=== PATIENT | male | born 2000 | race Caucasian/White ===

== ENCOUNTER 2021-05-02 17:49 | Inpatient (IN) | payer BC ==
--- NOTE | 2021-05-02 18:39 | ED ---
General Adult HPI - General Chief complaint: Psychiatric Symptoms Stated complaint: Bee Farmer Order Time Seen by Provider: 05/02/21 18:17 Source: patient Mode of arrival: ambulatory Limitations: no limitations - History of Present Illness Initial comments: Dictation was produced using [employer] dictation software. please excuse any grammatical, word or spelling errors. Chief Complaint: 20year-old male brought to the emergency department for [employer] mushroom picker order History of Present Illness: She is a 20-year-old male has no past medical history. He was brought in by police department for mushroom picker order. There is pick for documentation stating that patient has been homicidal showing signs of psychosis. Patient denies any such issues. Denies any suicidal or homicidal ideation. According to pick him for documentation patient has tried to kill himself and kill his father. He's also been showing signs of cedric. Patient denies any medical complaints. The ROS documented in this emergency department record has been reviewed and confirmed by me. Those systems with pertinent positive or negative responses have been documented in the HPI. All other systems are other negative and/or noncontributory. PHYSICAL EXAM: General Impression: Alert and oriented x3, not in acute distress HEENT: Normocephalic atraumatic, extra-ocular movements intact, pupils equal and reactive to light bilaterally, mucous membranes moist. Cardiovascular: Heart regular rate and rhythm Chest: Able to complete full sentences, no retractions, no tachypnea Abdomen: abdomen soft, non-tender, non-distended, no organomegaly Musculoskeletal: Pulses present and equal in all extremities, no peripheral edema Motor: no focal deficits noted Neurological: CN II-XII grossly intact, no focal motor or sensory deficits noted Skin: Intact with no visualized rashes Psych: Normal affect and mood ED course: 1-year-old male presents to the emergency department with Police Department as a mushroom picker order vital signs upon arrival are within acceptable limits. Patient has no medical complaints. Physical examination is benign. Patient medically cleared for EPS evaluation. Patient evaluated by EPS and will be admitted to inpatient psych. Clinical certification completed. - Related Data Home Medications Medication Instructions Recorded Confirmed No Known Home Medications 05/02/21 05/02/21 Allergies Allergy/AdvReac Type Severity Reaction Status Date / Time No Known Allergies Allergy Verified 05/02/21 21:50 Review of Systems ROS Statement: Those systems with pertinent positive or pertinent negative responses have been documented in the HPI. ROS Other: All systems not noted in ROS Statement are negative. Past Medical History Past Medical History: No Reported History History of Any Multi-Drug Resistant Organisms: None Reported Past Surgical History: No Surgical Hx Reported Past Psychological History: No Psychological Hx Reported Smoking Status: Never smoker Past Alcohol Use History: Occasional Past Drug Use History: Marijuana General Exam Limitations: no limitations Course Vital Signs 05/02/21 18:02 Temperature 98.3 F Pulse Rate 86 Respiratory 18 Rate Blood Pressure 131/76 O2 Sat by Pulse 95 Oximetry Disposition Clinical Impression: Psychosis Disposition: ADMITTED IP TO THIS HOSP Condition: Fair Referrals: None,Stated [REFERRING] - 1-2 days
[2021-05-03] MEDS ORDERED: LORazepam 1 MG TAB PO PRN (00:39)
[2021-05-03] MEDS ORDERED: ACETAMINOPHEN TAB 325 MG TAB PO PRN (00:39)
[2021-05-03] MEDS ORDERED: MAGNESIUM HYDROXIDE 2,400 MG/10 ML CUP PO PRN (00:39)
[2021-05-03] MEDS ORDERED: MAG HYDROX/AL HYDROX/SIMETH 30 ML CUP PO PRN (00:39)
[2021-05-03] MEDS ORDERED: LORazepam 2 MG/ML INJ IM PRN (00:43)
[2021-05-03] MEDS ORDERED: HALOPERIDOL LACTATE 5 MG/ML 1 ML VIAL IM PRN (00:44)
[2021-05-03] MEDS: NICOTINE 14MG/24HR PATCH TRANSDERM SCH ×2 (01:33→11:06)
[2021-05-03 02:20] LABS: Appearance,Urine Clear (Clear); Bilirubin,Urine Negative (Negative); Blood,Urine Negative (Negative); Color,Urine Colorless; Glucose,Urine (UA) Negative (Negative); Ketones,Urine Negative (Negative); Leukocyte Esterase,Urine Negative (Negative); Nitrite,Urine Negative (Negative); Protein,Urine Negative (Negative); Specific Gravity,Urine 1.004 (1.001-1.035); Urobilinogen,Urine <2.0 mg/dL (<2.0)
--- NOTE | 2021-05-03 05:06 | P.MDCNMH ---
History of Present Illness H&P Date: 05/03/21 Chief Complaint: medical eval 20 year old no significant past medical history patient is here for evaluation due to homicidal ideation , he was brought in by police. patient denies any medical concerns or homicidal or suicidal ideation. he admits to having family history of mental health issues. from ED documentation , looks like police brought him in due to homicidal ideation against his father, and suicidal ideation. he was manic and acutely psychotic per ED report. currently he is calm and cooperative. Patient denies cigarette smoking, drug abuse, or alcohol abuse Review of Systems Pertinent positives as noted in HPI. All other systems were reviewed and are negative Past Medical History Past Medical History: No Reported History History of Any Multi-Drug Resistant Organisms: None Reported Past Surgical History: No Surgical Hx Reported Past Psychological History: No Psychological Hx Reported Smoking Status: Current every day smoker Past Alcohol Use History: Occasional Past Drug Use History: Marijuana - Past Family History family Additional Family Medical History / Comment(s): mental health issues Medications and Allergies Home Medications Medication Instructions Recorded Confirmed Type No Known Home Medications 05/02/21 05/03/21 History Allergies Allergy/AdvReac Type Severity Reaction Status Date / Time No Known Allergies Allergy Verified 05/03/21 03:27 Physical Exam Vitals: Vital Signs Temp Pulse Pulse Resp BP BP Pulse Ox 05/03/21 01:06 98.6 F 79 16 110/69 99 05/03/21 00:00 84 20 124/84 95 05/02/21 18:02 98.3 F 86 18 131/76 95 Intake and Output 05/02/21 05/02/21 05/03/21 14:59 22:59 06:59 Other: Weight 63.503 kg 64.552 kg Constitutional: No acute distress, conversant, pleasant Eyes: Anicteric sclerae, moist conjunctiva, Pupils equal round reactive to light ENMT: NC/AT Oropharynx clear, no erythema, or exudates Neck: Supple, FROM, no masses, or JVD No carotid bruits No thyromegaly Lungs: Clear to auscultation Clear to percussion Normal respiratory effort, no accessory muscle use Cardiovascular: Heart regular in rate and rhythm, No murmurs, gallops, or rubs No peripheral edema Abdominal: Soft Nontender, no guarding, rebound or rigidity Abdomen moving with respiration Normoactive bowel sounds No hepatomegaly, No splenomegaly No palpable mass No abdominal wall hernia noted Skin: Normal temperature, tone, texture, turgor No induration No subcutaneous nodules No rash, lesions No ulcers Extremities: No digital cyanosis No clubbing Pedal pulses intact and symmetrical Radial pulses intact and symmetrical No calf tenderness Psychiatric: Alert and oriented to person, place and time Neuro Muscles Strength 5/5 in all 4 extremities Sensation to light touch grossly present throughout Cranial nerves II-XII grossly intact No focal sensory deficits Lymphatics: no palpable cervical or supraclavicular , or inguinal lymph nodes Cranial Nerve Examination - Cranial Nerves Cranial Nerve II- Optic: Intact Cranial Nerve III- Oculomotor: Intact Cranial Nerve IV- Trochlear: Intact Cranial Nerve V- Trigeminal: Intact Cranial Nerve - Abducens: Intact Cranial Nerve VII- Facial: Intact Cranial Nerve VIII- Auditory: Intact Cranial Nerve IX- Glossopharyngeal: Intact Cranial Nerve X- Vagus: Intact Cranial Nerve XI- Accessory: Intact Cranial Nerve XII- Hypoglossal: Intact Assessment and Plan Assessment: acute psychosis with suicidal and homicidal ideation suicide precautions management per psych follow up labs Thank you for allowing us to participate in the care of this patient. We will follow peripherally. Do not hesitate to contact us with questions. Someone can be reached from the [facility] hospitalist group at all hours of the day at [phone].
[2021-05-03] MEDS: ARIPiprazole 5 MG TAB PO SCH (11:55)
--- NOTE | 2021-05-03 12:00 | P.HP ---
Psychiatric H&P - . H&P Date: 05/03/21 History & Physical: Allergies Allergy/AdvReac Type Severity Reaction Status Date / Time No Known Allergies Allergy Verified 05/03/21 03:27 Vital Signs Temp 98.6 F 05/03/21 01:06 Pulse 79 05/03/21 01:06 Resp 16 05/03/21 01:06 BP 110/69 05/03/21 01:06 Pulse Ox 99 05/03/21 01:06 Intake & Output 05/02/21 05/03/21 05/03/21 18:59 06:59 18:59 Weight 63.503 kg 64.552 kg Laboratory Last Values Urine Color Colorless 05/03/21 01:14 Urine Appearance Clear (Clear) 05/03/21 01:14 Urine pH 7.0 (5.0-8.0) 05/03/21 01:14 Ur Specific [place] 1.004 (1.001-1.035) 05/03/21 01:14 Urine Protein Negative (Negative) 05/03/21 01:14 Urine Glucose (UA) Negative (Negative) 05/03/21 01:14 Urine Ketones Negative (Negative) 05/03/21 01:14 Urine Blood Negative (Negative) 05/03/21 01:14 Urine Nitrite Negative (Negative) 05/03/21 01:14 Urine Bilirubin Negative (Negative) 05/03/21 01:14 Urine Urobilinogen <2.0 mg/dL (<2.0) 05/03/21 01:14 Ur Leukocyte Esterase Negative (Negative) 05/03/21 01:14 Coronavirus (PCR) Not Detected (Not Detectd) 05/02/21 21:45 05/03/21 11:54 IDENTIFYING DATA: Patient is a 20-year-old male who currently lives with his grandmother's single has no kids. HPI: Patient presented to the hospital yesterday on a pickup order by police. Apparently patient was exhibiting manic symptoms in the ER. Patient was on petition by his parents who are stating that patient has been making homicidal threats towards them. Patient was seen today pacing the hallways and was very adamant to speak to job specification writer. He initially told job specification writer that "if you don't discharge me today I'm calling a transmission superintendent". He made several threats towards writ er about legal action and also denied everything on the petition. He claims that "these people are trying to mess up my life" and pointed to the petition and the certificate from the ER doctor. He claims that the ER doctor does not have the right to assess him as psychotic. 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 He had racing thoughts and flight of ideas. He had poor impulse control and poor insight and judgment. He claims that he will not take any medications and was persistent on discharge. He claims that his mood is "great". He is denying any depression or anxiety. He states that he has not slept in the past few days. He claims that he wants to "block of my family and friends" because he feels that they are judging him and that they will try and force him to get treatment. Patient denies any suicidal or homicidal ideations intent or plan. At this time patient denies any auditory or visual hallucinations. Patient is currently using marijuana however did not specify how much. He denies using any other recreational drugs. PAST PSYCHIATRIC HISTORY: Patient states that he has no previous psychiatric history. Patient denies being on any psychiatric medications. Patient denies any previous psychiatric hospitalizations. Patient denies any psychiatric outpatient follow-up. Patient denies any history of suicide attempts in the past. PMH:denies ALLERGIES: as per EMR CHEMICAL DEPENDENCY HISTORY: as per HPI FAMILY PSYCHIATRIC/SUBSTANCE USE HISTORY: He states that his brother and father both have schizophrenia. SOCIAL HISTORY: Patient was born and raised in [facility]. He states that he completed high school. He states that he has never been to halfway or shelter. He denies having any kids and states that he is unmarried. He claims he lives with his grandmother. MENTAL STATUS EXAM: General Appearance: Patient appears to be thin, stated age is alert, intrusive. Patient appears to have poor hygiene and grooming. Behavior: Patient is seated without any agitated behavior. Intrusive and impulsive. Speech: Patient's speech is hyperverbal. Mood/Affect: Patient reports their mood is "great", affect is congruent Suicidality/Homicidality: Patient denies having any homicidal ideation intent or plan. Denies any suicidal ideations intent or plan Perceptions: Patient denies any visual hallucinations and denies any auditory hallucinations Though content/process: Rambles, tangential/circumstantial. Delusional. Grandiose. Memory and concentration: AOX3, grossly intact for the purposes of this session. Can spell "WORLD" backwards Judgment and insight: poor STRENGTHS/WEAKNESSES: strength is that patient is resilient. Weakness is that patient has poor judgment and is impulsive INTELLECT: average IMPRESSIONS: Bipolar disorder, current episode manic with psychotic features Cannabis use disorder PLAN: -Patient is admitted under involuntary status to [facility] for stabilization of psychiatric symptoms and safety. Patient has not signed adult voluntary form and medication consent and is placed in patient's chart. A second certification was completed and along with petition will be filed for court. -Medications : Will start patient on Abilify 5 mg daily for mood stabilization/psychosis. Trazodone 50 mg daily at bedtime for insomnia. -Ativan and Haldol PRN for agitation/aggression -Patient was informed of the risks, benefits and side effects of the medication -Internal Medicine consult to perform medical evaluation and physical. -NRT - not needed as patient does not smoke -SW on board for discharge planning. Encourage patient to participate in groups to work on coping skills. Will await deferral and court date.
[2021-05-03] MEDS: traZODone HCL 50 MG TAB PO SCH (21:02)
[2021-05-04 07:51] LABS: Urine Alcohol Negative (Negative); Urine Barbiturate Negative (Negative); Urine Cocaine Negative (Negative); Urine Methadone Negative (Negative); Urine Opiates Negative (Negative); Urine Phencyclidine Negative (Negative)
[2021-05-04] MEDS: NICOTINE 14MG/24HR PATCH TRANSDERM SCH (08:07)
[2021-05-04] MEDS: ARIPiprazole 5 MG TAB PO SCH (08:07)
--- NOTE | 2021-05-04 10:29 | P.PN ---
Progress Note - Text Progress Note Date: 05/04/21 Interval History: Patient was seen wandering the hallways and was directable and agreeable to sp eak with job specification writer in the office. Patient continues to be hyperverbal and have a flight of ideas and racing thoughts. He continues to demand discharge and have poor insight and judgment into his mental health and also his need for treatment. He remains fixated on obtaining a iuss master analyst and also "going after my family legally" as he was pointing to the petition repeatedly during the interview. He apologized somewhat for being angry with job specification writer yesterday and states "you're just doing her job". He continues to state that he is refusing medications. He states that his mood is "okay" and is denying any depression and states that "I would never hurt a fly". He claimed that he had poor sleep last night and remained awake until 2 AM. He states that he spoke with his ex- girlfriend over the phone because "she is the only one I trust" and believes that other people are trying to get in the way of his plans. At this time patient denies any suicidal or homical ideations, intent or plan. Patient denies any auditory, visual hallucinations. Mental Status Exam: General Appearance: Patient appears to be thin, stated age is alert, intrusive. Patient appears to have mildly hygiene and grooming. Behavior: Patient is seated without any agitated behavior. Intrusive and impulsive. Speech: Patient's speech is hyperverbal. Mood/Affect: Patient reports their mood is "ok", affect is congruent Suicidality/Homicidality: Patient denies having any homicidal ideation intent or plan. Denies any suicidal ideations intent or plan Perceptions: Patient denies any visual hallucinations and denies any auditory hallucinations Though content/process: Rambles, tangential/circumstantial. Delusional. Grandiose. Memory and concentration: AOX3, grossly intact for the purposes of this session Judgment and insight: poor Assessment Bipolar disorder, current episode manic with psychotic features Cannabis use disorder Plan: -Patient continues to meet criteria for inpatient psychiatric admission for symptom stabilization and safety. Patient has not signed adult voluntary form and medication consent and was placed in patient's chart. -Medications: Continue with Abilify 5 mg daily for mood stabilization/psychosis. Trazodone 50 mg daily at bedtime for insomnia. Patient has been refusing his medications. -When necessary Ativan and Haldol for agitation/aggression. -NRT - not needed as patient does not smoke -SW on board for discharge planning. Encouraged the patient to participate in milieu. Currently awaiting deferral with admitted attorneys and court date.
[2021-05-04] MEDS: traZODone HCL 50 MG TAB PO SCH (21:12)
[2021-05-05] MEDS: ARIPiprazole 5 MG TAB PO SCH (08:09)
[2021-05-05] MEDS: NICOTINE 14MG/24HR PATCH TRANSDERM SCH (08:09)
[2021-05-05] MEDS: traZODone HCL 50 MG TAB PO SCH (20:22)
--- NOTE | 2021-05-06 01:32 | P.PN ---
Progress Note - Text Progress Note Date: 05/05/21 Subjective: Patient was seen today as a cross coverage for Eula. The patient was evaluated, chart reviewed, case discussed with the treatment team. Patient reports good sleep last night, and appetite was reported as "great". Patient has not been going to groups and other unit activities. The patient is not compliant with his medications and continued to refuse taking any meds or receiving any treatment during his hospital stay. Patient reports refusing any treatment including medications and other program activities. He states that he was given wrong diagnosis and he doesn't agree with his mother who brought him to the hospital. He reports probably presented first day with increased speech and irritated because of the situation that he was brought to the hospital so Dr. Forde "mistakenly" diagnosed him with bipolar. Pt. denies any history of depressive or manic episodes. He reports his mood is "great" and denies depression, anxiety, mood swings, anger or agitation. Denies any hallucinations, paranoid ideation or delusions. Objective: Vitals has been reviewed. Mental status examination. Appearance: The patient appears older than, groomed, average body built, no specific features. Gait/posture: Normal gait, Normal arm swinging: No abnormal movements. Attitude and behavior: engaged, cooperative, fair eye contact. Motor activity: normal psychomotor activity Speech: normal rate, rhythm and articulation. Not pressured Mood: "fine Affect: Normal Thought form: Linear, goal directed Thought content: non delusional, no suicidal thoughts, no homicidal thoughts, no intentions or plans. Perception: Denies any hallucinations Attention: No impairment. Orientation: Oriented to time, place, person and situation. Insight: Patient has limited insight about his psychiatric disorder. Judgment: Patient has limited judgment about his psychiatric treatment. Assessment: Bipolar disorder, current episode manic with psychotic features Cannabis use disorder Plan: Continue inpatient level of care for further monitoring and stabilization, and he still meets criteria for inpatient psychiatric hospitalization. Precautions: Continue 15 minutes check for safety. Consider medical consultation if any acute medical issues arise. Provide the patient individual, group therapy, substance use disorder counseling to give better insight and learn coping skills. Medications: Patient continued to refuse taking any psych medications Abilify 5 mg for mood stabilization and Trazodone 50 mg HS for insomnia. NRT. Continue as needed medications for psychiatric emergencies including psychosis, agitation and anxiety. Continue non-psychiatric medications for medical conditions as recommended by the medical team. Pt is scheduled for court hearing as he refused any psych treatment. Discharge patient to OUTPATIENT services upon a stabilization
[2021-05-06] MEDS: NICOTINE 14MG/24HR PATCH TRANSDERM SCH (07:59)
[2021-05-06] MEDS: ARIPiprazole 5 MG TAB PO SCH (07:59)
[2021-05-06] MEDS: traZODone HCL 50 MG TAB PO SCH (20:13)
--- NOTE | 2021-05-06 23:53 | P.PN ---
Progress Note - Text Progress Note Date: 05/06/21 Subjective: Patient was seen today as a cross coverage for Eula. The patient was evaluated, chart reviewed, case discussed with the treatment team. Patient continued to be argumentative about his diagnosis, and reports his mother petition was just "lies". Patient addressed that he was stressed at the time he came to the hospital but denies any intention to hurt himself, and other time stated" I don't remember". Patient continues to refuse taking any psychiatric medications or receiving any treatment. He reports well go to the court and asking about his equipment maintenance engineer. Patient denies any symptoms of depression, feeling hopeless, or suicidal. He denies any mood swings, irritability, agitation, or manic symptoms. No report of behavioral problems, manic symptoms, or psychosis. Patient reports fair sleep and appetite Objective: Vitals has been reviewed. Mental status examination. Appearance: The patient appears older than, groomed, average body built, no specific features. Gait/posture: Normal gait, Normal arm swinging: No abnormal movements. Attitude and behavior: engaged, cooperative, fair eye contact. Motor activity: normal psychomotor activity Speech: normal rate, rhythm and articulation. Not pressured Mood: "fine Affect: Normal Thought form: Linear, goal directed Thought content: non delusional, no suicidal thoughts, no homicidal thoughts, no intentions or plans. Perception: Denies any hallucinations Attention: No impairment. Orientation: Oriented to time, place, person and situation. Insight: Patient has limited insight about his psychiatric disorder. Judgment: Patient has limited judgment about his psychiatric treatment. Assessment: Bipolar disorder, current episode manic with psychotic features Cannabis use disorder Plan: Continue inpatient level of care for further monitoring and stabilization, and he still meets criteria for inpatient psychiatric hospitalization. Precautions: Continue 15 minutes check for safety. Consider medical consultation if any acute medical issues arise. Provide the patient individual, group therapy, substance use disorder counseling to give better insight and learn coping skills. Medications: Patient continued to refuse taking any psych medications Abilify 5 mg for mood stabilization and Trazodone 50 mg HS for insomnia. NRT. Continue as needed medications for psychiatric emergencies including psychosis, agitation and anxiety. Continue non-psychiatric medications for medical conditions as recommended by the medical team. Discharge patient to OUTPATIENT services upon a stabilization
[2021-05-07] MEDS: NICOTINE 14MG/24HR PATCH TRANSDERM SCH (09:15)
[2021-05-07] MEDS: ARIPiprazole 5 MG TAB PO SCH (09:15)
--- NOTE | 2021-05-07 10:00 | P.PN ---
Progress Note - Text Progress Note Date: 05/07/21 Interval History: Patient was seen wandering the hallways and was directable and agreeable to meera azevedo with data analyst report writer in the office. Patient continues to be hyperverbal at times and continues to have racing thoughts however this has mildly improved since he was last seen on Friday. Patient continues to refuse medications over the weekend and had a negative perception on medications however did ask several questions about it. He has not spoken with his securities attorney yet however did state that he does not know whether he is going to defer or go to the court hearing. He claims that his mood is "fine" however as an incongruent affect. He states that he has not spoken with his parents since being admitted however has spoken to his ex-girlfriend. He states that he is resilient and can do things on his own when he leaves the hospital. He was fairly vague about his sleep last night. He claims that he has been going to some groups however was also vague about the details. He continues to be very focused on discharge. At this time patient denies any suicidal or homical ideations, intent or plan. Patient denies any auditory, visual hallucinations. Mental Status Exam: General Appearance: Patient appears to be thin, stated age is alert, less intrusive today. Patient appears to have mildly hygiene and grooming. Behavior: Patient is seated without any agitated behavior. Impulsive, mildly improving. Speech: Patient's speech is hyperverbal, improving mildly. Mood/Affect: Patient reports their mood is "fine", affect is incongruent Suicidality/Homicidality: Patient denies having any homicidal ideation intent or plan. Denies any suicidal ideations intent or plan Perceptions: Patient denies any visual hallucinations and denies any auditory hallucinations Though content/process: Rambles, tangential/circumstantial. less Grandiose. Memory and concentration: AOX3, grossly intact for the purposes of this session Judgment and insight: poor Assessment Bipolar disorder, current episode manic with psychotic features Cannabis use disorder Plan: -Patient continues to meet criteria for inpatient psychiatric admission for symptom stabilization and safety. Patient has not signed adult voluntary form and medication consent and was placed in patient's chart. -Medications: Continue with Abilify 5 mg daily for mood stabilization/psychosis. Trazodone 50 mg daily at bedtime for insomnia. Patient has been refusing his medications. -When necessary Ativan and Haldol for agitation/aggression. -NRT - not needed as patient does not smoke -SW on board for discharge planning. Encouraged the patient to participate in milieu. Currently awaiting deferral with securities attorney and court date.
[2021-05-07] MEDS: traZODone HCL 50 MG TAB PO SCH (21:24)
[2021-05-08] MEDS: NICOTINE 14MG/24HR PATCH TRANSDERM SCH (08:42)
[2021-05-08] MEDS: ARIPiprazole 5 MG TAB PO SCH (08:42)
--- NOTE | 2021-05-08 10:08 | P.PN ---
Progress Note - Text Progress Note Date: 05/08/21 Interval History: Patient was seen wandering the hallways and was directable and agreeable to meera azevedo with promotion writer in the office. Patient continues to be hyperverbal at times and has racing thoughts. 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 He states that he is going to get "restraining orders against everybody". He continues to show some mild grandiosity and believes that he is "super smart". He also claims that he is very strong willed and will do anything for his beliefs and he does not want to take medications at this time. He was fairly vague about his sleep last night. He claims that he has not been going to groups and has been mainly pacing the hallway. He continues to be very focused on discharge. At this time patient denies any suicidal or homical ideations, intent or plan. Patient denies any auditory, visual hallucinations. Mental Status Exam: General Appearance: Patient appears to be thin, stated age is alert, intrusive today. Patient appears to have mildly hygiene and grooming. Behavior: Patient is seated without any agitated behavior. Impulsive, mildly improving. Speech: Patient's speech is hyperverbal, improving mildly. Mood/Affect: Patient reports their mood is "ok", affect is incongruent Suicidality/Homicidality: Patient denies having any homicidal ideation intent or plan. Denies any suicidal ideations intent or plan Perceptions: Patient denies any visual hallucinations and denies any auditory hallucinations Though content/process: Rambles, tangential/circumstantial. Grandiose. Memory and concentration: AOX3, grossly intact for the purposes of this session Judgment and insight: poor Assessment Bipolar disorder, current episode manic with psychotic features Cannabis use disorder Plan: -Patient continues to meet criteria for inpatient psychiatric admission for symptom stabilization and safety. Patient has not signed adult voluntary form and medication consent and was placed in patient's chart. -Medications: Continue with Abilify 5 mg daily for mood stabilization/psychosis. Trazodone 50 mg daily at bedtime for insomnia. Patient has been refusing his medications. -When necessary Ativan and Haldol for agitation/aggression -NRT - not needed as patient does not smoke -SW on board for discharge planning. Encouraged the patient to participate in milieu. Patient will be having his deferral today at [address] to follow.
[2021-05-08] MEDS: traZODone HCL 50 MG TAB PO SCH (23:00)
[2021-05-09] MEDS: traZODone HCL 50 MG TAB PO SCH ×2 (00:35→22:54)
[2021-05-09] MEDS: NICOTINE 14MG/24HR PATCH TRANSDERM SCH (08:20)
[2021-05-09] MEDS: ARIPiprazole 5 MG TAB PO SCH (08:20)
--- NOTE | 2021-05-09 11:06 | P.PN ---
Progress Note - Text Progress Note Date: 05/09/21 Interval History: Patient was seen wandering the hallways , pacing the hallways and was approached by greeting card writer to be interviewed. Patient was agreeable to speak to greeting card writer in the office today. He continues to be hyperverbal at times and has racing thoughts however this has improved mildly since yesterday. He claims that he spoke to the hcc coders yesterday and did not sign the deferral and wants to go to court. He continues to believe that he does not need medications and does not need to be in the hospital. He states that he spoke with his father however was fairly vague about their conversation and states that "he made a mistake". He states that he was not able to sleep well last night and took the trazodone however believes that the dose was too strong and wants to be decreased. He claims that he has not been going to groups and has been mainly pacing the hallway. He continues to be very focused on discharge. At this time patient denies any suicidal or homical ideations, intent or plan. Patient denies any auditory, visual hallucinations. Mental Status Exam: General Appearance: Patient appears to be thin, stated age is alert, intrusive today. Patient appears to have mildly hygiene and grooming. Behavior: Patient is seated without any agitated behavior. Impulsive, mildly improving. Speech: Patient's speech is hyperverbal, improving mildly. Mood/Affect: Patient reports their mood is "fine", affect is incongruent Suicidality/Homicidality: Patient denies having any homicidal ideation intent or plan. Denies any suicidal ideations intent or plan Perceptions: Patient denies any visual hallucinations and denies any auditory hallucinations Though content/process: Rambles, tangential/circumstantial. Grandiose, improving mildly Memory and concentration: AOX3, grossly intact for the purposes of this session Judgment and insight: poor Assessment Bipolar disorder, current episode manic with psychotic features Cannabis use disorder Plan: -Patient continues to meet criteria for inpatient psychiatric admission for symptom stabilization and safety. Patient has not signed adult voluntary form and medication consent and was placed in patient's chart. -Medications: Continue with Abilify 5 mg daily for mood stabilization/psychosis. Decreased Trazodone 25 mg daily at bedtime for insomnia. Patient has been refusing his medications. -When necessary Ativan and Haldol for agitation/aggression -NRT - not needed as patient does not smoke -SW on board for discharge planning. Encouraged the patient to participate in milieu. Patient did not defer with his contracts attorney and will be going to the full court hearing on 05/16 at 11 AM.
[2021-05-10] MEDS: NICOTINE 14MG/24HR PATCH TRANSDERM SCH (08:43)
[2021-05-10] MEDS: ARIPiprazole 5 MG TAB PO SCH (08:43)
--- NOTE | 2021-05-10 10:31 | P.PN ---
Progress Note - Text Progress Note Date: 05/10/21 Interval History: Patient was seen wandering and pacing the hallways back and forth and was appr oached by proposal lead writer to be interviewed. Patient was agreeable to speak with proposal lead writer in the office. He claims that he is doing "fine" however appears to be anxious at times during the interview. He continues to state that he has not wanted to take the medications. He continues to be hyperverbal at times rendering the interview. He continues to endorse some racing thoughts. He states that he has not spoken with his father in a couple of days however has been speaking with his grandmother every day in the morning. Patient took the trazodone last night and states that it is a better dose for him and doesn't leave him very sedated. He claims that he has been going to only some groups "just to appease people". He continues to be very focused on discharge and his court date. At this time patient denies any suicidal or homical ideations, intent or plan. Patient denies any auditory, visual hallucinations. Mental Status Exam: General Appearance: Patient appears to be thin, stated age is alert, intrusive today. Patient appears to have mildly hygiene and grooming. Behavior: Patient is seated without any agitated behavior. Impulsive Speech: Patient's speech is hyperverbal, improving mildly. Mood/Affect: Patient reports their mood is "fine", affect is incongruent Suicidality/Homicidality: Patient denies having any homicidal ideation intent or plan. Denies any suicidal ideations intent or plan Perceptions: Patient denies any visual hallucinations and denies any auditory hallucinations Though content/process: Rambles, tangential/circumstantial. Grandiose, improving mildly Memory and concentration: AOX3, grossly intact for the purposes of this session Judgment and insight: poor Assessment Bipolar disorder, current episode manic with psychotic features Cannabis use disorder Plan: -Patient continues to meet criteria for inpatient psychiatric admission for symptom stabilization and safety. Patient has not signed adult voluntary form and medication consent and was placed in patient's chart. -Medications: Continue with Abilify 5 mg daily for mood stabilization/psychosis. Trazodone 25 mg daily at bedtime for insomnia. -When necessary Ativan and Haldol for agitation/aggression -NRT - not needed as patient does not smoke -SW on board for discharge planning. Encouraged the patient to participate in milieu. Patient did not defer with his traffic law attorney and will be going to the full court hearing on 05/16 at 11 AM.
[2021-05-10] MEDS: traZODone HCL 50 MG TAB PO SCH (23:06)
[2021-05-11] MEDS: ARIPiprazole 5 MG TAB PO SCH (08:13)
[2021-05-11] MEDS: NICOTINE 14MG/24HR PATCH TRANSDERM SCH (08:13)
--- NOTE | 2021-05-11 15:38 | PN ---
PROGRESS NOTE DATE OF SERVICE: 05/11/2021. CHIEF COMPLAINT: The patient was admitted on petition stating he had been making threats towards his parents and that he was showing paranoid thinking. INTERVAL HISTORY: Patient has been doing fair. He was out on the unit yesterday. He interacts with staff and peers. He tends to have a somewhat intense energetic manner, though not to a significant degree. He attended groups yesterday, in one group he was making some questionable statements. He reports that his sleep has been fairly good. He states that the trazodone seems to help in that regard. He notes that is the only medicine that he is willing to take at this point. He was focused on the idea of having his court hearing on Friday for the involuntary treatment process. When I talked to him today, he had no specific complaints or concerns. He continues to reiterate that what is documented on the petition is inaccurate or can try, but he said the only thing that he agreed with on the petition was the statement his mother made of "he has stated he did not need help and anyone who thinks so....." The patient discussed his current situation. 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 He said that things are in order in that regard. He notes that he has not been living at home with his parents for a number of years and currently lives with his grandmother. He has been attending groups. At times he can present in a fairly intense manner. He has had no issues taking trazodone, which is the only psychotropic medication that he would agree to. MENTAL STATUS EXAM: Patient gave fairly good eye contact. He had a restless manner. He answered questions appropriately. His thoughts were clear and coherent. He was spontaneous and interactive. At times he seemed somewhat hyperverbal. His affect was broad and somewhat intense. He had a friendly manner. His mood was elevated. He did not appear to be distressed. There was no outward evidence of thought disorder. He voiced no thoughts of harm. Cognition was clear. ASSESSMENT: I will continue the current diagnosis and treatment plan. I will continue with the current treatment course. He is on trazodone which he takes for sleep, though does not see an indication for taking any other medications. I reviewed the court process with the patient. We will focus on stabilization and discharge planning. IRINA / MAGGIEN: [id number] /
[2021-05-11] MEDS: traZODone HCL 50 MG TAB PO SCH (23:41)
[2021-05-12] MEDS: ARIPiprazole 5 MG TAB PO SCH (08:04)
[2021-05-12] MEDS: NICOTINE 14MG/24HR PATCH TRANSDERM SCH (08:04)
--- NOTE | 2021-05-12 11:27 | PN ---
PROGRESS NOTE DATE OF SERVICE: 05/12/2021. CHIEF COMPLAINT: The patient was admitted on petition stating he had been making threats towards his parents and that he was showing paranoid thinking. INTERVAL HISTORY: Patient has been doing fairly well overall. He had a quiet day yesterday. He comes on the unit. He wanders about. He will attend groups. He generally maintains a fairly even mood if not a somewhat elevated mood. He said he slept well last night. He has been cooperative with care. Today he has been up and out. Today he voices no specific complaints or concerns. He is aware of the court situation and says that he anticipates a reasonable outcome from that. At this point his preference is to not be on any psychotropic medications beyond using trazodone for sleep. He has had no problems with the trazodone. MENTAL STATUS EXAM: Patient was a little restless. He gave good eye contact. He answered questions appropriately. His thoughts were clear. He was spontaneous and somewhat interactive. His affect was broad. His mood was somewhat elevated. He did not appear distressed. There was no outward indication of thought disorder. He voiced no thoughts of harm. Cognition was clear. ASSESSMENT: I will continue the current diagnosis and treatment plan. We will continue to support the patient with individual and group therapeutic interventions. He remains off any primary psychotropic medications. He has a court hearing on Friday relating to his petition process. We will focus on stabilization and discharge planning. IRINA / CHAVO: [id number] /
[2021-05-12] MEDS: traZODone HCL 50 MG TAB PO SCH (23:43)
[2021-05-13 07:01] VITALS: RESP 16
[2021-05-13] MEDS: ARIPiprazole 5 MG TAB PO SCH (07:49)
[2021-05-13] MEDS: NICOTINE 14MG/24HR PATCH TRANSDERM SCH (07:49)
--- NOTE | 2021-05-13 09:13 | PN ---
PROGRESS NOTE DATE OF SERVICE: 05/13/2021. CHIEF COMPLAINT: The patient was admitted on petition stating he had been making threats toward his parents and that he was showing paranoid thinking. INTERVAL HISTORY: Patient has been doing fairly well overall. He has not had significant issues with how he has been functioning on the unit. He tends to be fairly active. He will be out in the day area and wander around. He does tend to walk in a somewhat rapid pace. It is noted that yesterday he was on the phone at different times and got loud on the phone a few times with whomever he was talking to. He seemed to be a little distressed at that. Other than that situation, he did not show any difficulties in his function. He slept fair last night. He requested an increase in his trazodone saying that he did not feel he got much benefit from it last night. He is up today. He continues to wander about. He at times will seem to almost pace as he walks around the unit. He tends to have an elevated mood. He has been cooperative with care. He continues to focus on his upcoming court hearing. Though it is fairly vague about what he expects as the outcome. He does not seem to be distressed one way or another. In regards to the possibilities, he has not had any issues with trazodone. MENTAL STATUS EXAM: Patient gave good eye contact. He was a little restless. He answered questions appropriately. His thoughts were clear. His affect was broad. His mood was somewhat elevated. He was interactive. He was not distressed in any way. It was difficult to determine any issues with thought disorder. He voiced no thoughts of harm. Cognition was clear. ASSESSMENT: I will continue the current diagnosis and treatment plan. I will continue in his current issues of remaining off any psychotropics other than trazodone for sleep. I again reviewed court issues briefly and possibility that there might be a requirement for other medication interventions. We will focus on stabilization and discharge planning. MMODL / MAGGIEN: [id number] /
[2021-05-13] MEDS: traZODone HCL 50 MG TAB PO SCH (23:45)
[2021-05-14] MEDS: ARIPiprazole 5 MG TAB PO SCH (08:16)
[2021-05-14] MEDS: NICOTINE 14MG/24HR PATCH TRANSDERM SCH (08:17)
--- NOTE | 2021-05-14 10:41 | P.PN ---
Progress Note - Text Progress Note Date: 05/14/21 Interval History: Patient was seen wandering and pacing the hallways back and forth this morning. Patient was agreeable to speak with financial underwriter in the office today. He was more apologetic today speaking about how he was "stubborn at the beginning" and states that he was resistant to taking medications however started taking medications this morning including his trazodone and also his Abilify for the first time today. He states that he is hopeful that it will help him and claims that he wants to sign a waive and stip with his civil litigation attorney today if possible. He claims that his mood is "fine" and claims that he is gradually improving. He is denying any anxiety today. He spoke more about his mother "holding my truck" over his head including the title to the car and states that now she will be signing off on it and giving it back to him. He states that he still does not trust his parents. He claims that he has been trying to go to groups and participate as best as he can. He claims that he is able to sleep fairly at night with the trazodone has a fair appetite. He appeared to have mild improvement in his racing thoughts today. At this time patient denies any suicidal or homical ideations, intent or plan. Patient denies any auditory, visual hallucinations. Mental Status Exam: General Appearance: Patient appears to be thin, stated age is alert, less intrusive today. Patient appears to have mildly hygiene and grooming. Behavior: Patient is seated without any agitated behavior.less Impulsive Speech: Patient's speech is hyperverbal, improving mildly. Mood/Affect: Patient reports their mood is "better", affect is congruent Suicidality/Homicidality: Patient denies having any homicidal ideation intent or plan. Denies any suicidal ideations intent or plan Perceptions: Patient denies any visual hallucinations and denies any auditory hallucinations Though content/process: Rambles, tangential/circumstantial, improving mildly. Grandiose, improving mildly Memory and concentration: AOX3, grossly intact for the purposes of this session Judgment and insight: poor, improving mildly Assessment Bipolar disorder, current episode manic with psychotic features Cannabis use disorder Plan: -Patient continues to meet criteria for inpatient psychiatric admission for symptom stabilization and safety. Patient has not signed adult voluntary form and medication consent and was placed in patient's chart. -Medications: Continue with Abilify 5 mg daily for mood stabilization/psychosis. Trazodone 50 mg daily at bedtime for insomnia. -When necessary Ativan and Haldol for agitation/aggression -NRT - not needed as patient does not smoke -SW on board for discharge planning. Encouraged the patient to participate in milieu. Patient did not defer with his civil litigation attorney and will be going to the full court hearing on 05/16 at 11 AM. Patient plans on signing a waive and stip with his civil litigation attorney before the court hearing.
[2021-05-14] MEDS: traZODone HCL 50 MG TAB PO SCH (22:05)
[2021-05-15 06:55] VITALS: BP 115/55; PULSE 76; TEMP 98.1
[2021-05-15] MEDS: NICOTINE 14MG/24HR PATCH TRANSDERM SCH (07:48)
[2021-05-15] MEDS: ARIPiprazole 5 MG TAB PO SCH (08:11)
--- NOTE | 2021-05-15 09:54 | P.PN ---
Progress Note - Text Progress Note Date: 05/15/21 Interval History: Patient was seen lying in his bed this morning was agreeable to speak with georgina campo in the office today. He claims that he woke up early today and ate breakfast and went back to bed. He claims that he is trying to be more social on the unit. He states that his "racing thoughts have slowed down". He continues to be apologetic towards card writer hand and appears to be more directable and agreeable to treatment today. He states that he has been taking his Abilify and finds that it is helping him mildly. He states that he met with the employment law attorney yesterday and signed the waive and stip form for court ordered treatment. He claims that his mood is "good" and claims that he is gradually improving. He is denying any anxiety today. He claims that he has been trying to go to groups and participate as best as he can. He claims that he is able to sleep fairly at night with the trazodone has a fair appetite. He appeared to have mild improvement in his racing thoughts today. At this time patient denies any suicidal or homical ideations, intent or plan. Patient denies any auditory, visual hallucinations. Mental Status Exam: General Appearance: Patient appears to be thin, stated age is alert, less intrusive today. Patient appears to have mildly hygiene and grooming. Behavior: Patient is seated without any agitated behavior.more cooperative today. Speech: Patient's speech is more fluent and normal rate. Mood/Affect: Patient reports their mood is "good", affect is congruent Suicidality/Homicidality: Patient denies having any homicidal ideation intent or plan. Denies any suicidal ideations intent or plan Perceptions: Patient denies any visual hallucinations and denies any auditory hallucinations Though content/process: Rambles at times, improving mildly. Her logical today and future oriented. Memory and concentration: AOX3, grossly intact for the purposes of this session Judgment and insight: improving mildly Assessment Bipolar disorder, current episode manic with psychotic features Cannabis use disorder Plan: -Patient continues to meet criteria for inpatient psychiatric admission for symptom stabilization and safety. Patient has not signed adult voluntary form and medication consent and was placed in patient's chart. -Medications: Abilify 5 mg daily for mood stabilization/psychosis. Trazodone 50 mg daily at bedtime for insomnia. -When necessary Ativan and Haldol for agitation/aggression -NRT - not needed as patient does not smoke -SW on board for discharge planning. Encouraged the patient to participate in milieu. Patient signed a waive and stip with his employment law attorney. Will likely prepare for his d/c tomorrow.
[2021-05-15 13:28] VITALS: BMI 20.6
[2021-05-15] MEDS: traZODone HCL 50 MG TAB PO SCH (22:10)
[2021-05-16] MEDS: ARIPiprazole 5 MG TAB PO SCH (08:12)
[2021-05-16] MEDS: NICOTINE 14MG/24HR PATCH TRANSDERM SCH (08:12)
--- NOTE | 2021-05-16 09:50 | P.DS ---
Providers Date of admission: 05/03/21 00:34 Expected date of discharge: 05/16/21 Attending physician: Reji Forde MD Consults: 05/03/21 00:39 Consult Physician Routine Consulting Provider: Iglesia Miranda Consult Reason/Comments: history and physical/medical management Do you want consulting provider notified?: Yes Primary care physician: Brian Collazo - Discharge Diagnosis(es) (1) Bipolar disorder, current episode manic severe with psychotic features Current Visit: Yes Status: Acute Priority: High (2) Cannabis use disorder, mild, abuse Current Visit: Yes Status: Acute Priority: Medium (3) Nicotine dependence Current Visit: Yes Status: Acute Priority: Low Hospital Course: Admission HPI: Admission note was completed by blurb writer "Patient is a 20-year-old male who currently lives with his grandmother's single has no kids.Patient presented to the hospital yesterday on a pickup order by police. Apparently patient was exhibiting manic symptoms in the ER. Patient was on petition by his parents who are stating that patient has been making homicidal threats towards them. Patient was seen today pacing the hallways and was very adamant to speak to blurb writer. He initially told blurb writer that "if you don't discharge me today I'm calling a quartz miner blasting". He made several threats towards blurb writer about legal action and also denied everything on the petition. He claims that "these people are trying to mess up my life" and pointed to the petition and the certificate from the ER doctor. He claims that the ER doctor does not have the right to assess him as psychotic. 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 He had racing thoughts and flight of ideas. He had poor impulse control and poor insight and judgment. He claims that he will not take any medications and was persistent on discharge. He claims that his mood is "grea t". He is denying any depression or anxiety. He states that he has not slept in the past few days. He claims that he wants to "block of my family and friends" because he feels that they are judging him and that they will try and force him to get treatment. Patient denies any suicidal or homicidal ideations intent or plan. At this time patient denies any auditory or visual hallucinations. Patient is currently using marijuana however did not specify how much. He denies using any other recreational drugs." Hospital course: Upon admission to the unit patient was initially exhibiting manic symptoms including racing thoughts and grandiosity and intrusiveness. Patient was however admitted involuntarily and a second certificate was completed and faxed to the courts. Patient ended up refusing to sign a deferral and was refusing his medications. Before his full court hearing date, patient again taking medications and was agreeable to sign a waive and stip with his trial attorney and is now currently on an acitve court order. Patient got along well with other patients on the unit and followed unit protocol. Patient was compliant with the medications and denied any side effects throughout hospital course. Patient was started on [Abilify 5 mg daily for mood stabilization/psychosis. Patient was also started on trazodone 50 mg daily at bedtime for insomnia. Patient spoke of his stressors and engaged in therapy both group and individual. Patient was also seen by medical team for history and physical exam. Throughout the course of the hospitalization patient gradually improved with regards to mood lability, anxiety, sleep and became more future oriented with improved insight and judgment. On the day of discharge patient denied any suicidal or homicidal ideations intent or plan denied any auditory or visual hallucinations. Patient endorsed wanting to live for his health and family. The patient denied any access to guns or weapons. Patient denied any paranoia and did not endorse any delusions. Patient does have a significant history of substance abuse and was counseled on abstaining from all substances including alcohol and marijuana. Patient elected to do outpatient substance use treatment program through [facility]. Patient was also counseled on the medications and need for regular compliance and was encouraged to follow-up with their outpatient appointment for mental health and also for primary care. Prior to discharge a family meeting will be arranged by pediatric social worker to answer any questions and ensure safety upon discharge. Mental status exam: General Appearance: Patient appears to be thin, stated age is alert, pleasant, and cooperative. Patient is in no acute distress and has improved hygiene and grooming Behavior: Patient is calmly seated without any agitated behavior. Speech: Patient's speech is fluent and nonpressured. Mood/Affect: Patient reports their mood is "better", affect is congruent Suicidality/Homicidality: Patient denies having any suicidal or homicidal ideation intent or plan. Perceptions: Patient denies any auditory or visual hallucinations. Though content/process: There is no evidence of any delusional thought content and thought process is linear and goal-directed. more future oriented Memory and concentration: AOX3, grossly intact for the purposes of this session. Can spell "WORLD" backwards correctly. Judgment and insight: improved with guarded prognosis Impression: Bipolar disorder, current episode manic with psychotic features Cannabis use disorder Nicotine dependence Plan: -Continue with discharge today as patient has improved and stabilized psychiatrically and is not currently an imminent threat to himself and/or others. Patient will remain at chronically elevated risk for harm to self and/or others due to his impulsivity and substance abuse. -Continue medications: Abilify 5 mg daily for mood stabilization/psychosis, trazodone 50 mg daily at bedtime for insomnia. -Patient was counseled on the need for medication compliance and appropriate follow-up at mental health and also primary care for medical issues. Patient verbalized understanding and agreed. -Social work to arrange for and conduct family meeting to ensure safety upon discharge and answer any questions/concerns. Social work also to arrange for patients follow up appointments with [facility] for psychiatric care along with follow up with primary care provider. -Patient counseled on abstaining from recreational drugs and marijuana and alcohol. Was informed/educated on the adverse effects on their physical and mental health. Patient verbally agreed and understood. -Patient was instructed to return to the hospital or seek immediate medical care if their psychiatric or medical symptoms do worsen or reoccur. Allergies Allergy/AdvReac Type Severity Reaction Status Date / Time No Known Allergies Allergy Verified 05/03/21 03:27 Laboratory Results Urine Color Colorless 05/03/21 01:14 Urine Appearance Clear (Clear) 05/03/21 01:14 Urine pH 7.0 (5.0-8.0) 05/03/21 01:14 Ur Specific [employer] 1.004 (1.001-1.035) 05/03/21 01:14 Urine Protein Negative (Negative) 05/03/21 01:14 Urine Glucose (UA) Negative (Negative) 05/03/21 01:14 Urine Ketones Negative (Negative) 05/03/21 01:14 Urine Blood Negative (Negative) 05/03/21 01:14 Urine Nitrite Negative (Negative) 05/03/21 01:14 Urine Bilirubin Negative (Negative) 05/03/21 01:14 Urine Urobilinogen <2.0 mg/dL (<2.0) 05/03/21 01:14 Ur Leukocyte Esterase Negative (Negative) 05/03/21 01:14 Urine Opiates Screen Negative ng/mL (Negative) 05/03/21 01:14 Urine Methadone Screen Negative ng/mL (Negative) 05/03/21 01:14 Ur Propoxyphene Screen Negative ng/mL (Negative) 05/03/21 01:14 Urine Barbiturates Negative ng/mL (Negative) 05/03/21 01:14 Ur Phencyclidine Scrn Negative ng/mL (Negative) 05/03/21 01:14 Ur Amphetamine Screen Negative ng/mL (Negative) 05/03/21 01:14 U Benzodiazepines Scrn Negative ng/mL (Negative) 05/03/21 01:14 Urine Cocaine Screen Negative ng/mL (Negative) 05/03/21 01:14 U Cannabinoids Screen Positive ng/mL (Negative) A 05/03/21 01:14 Urine Alcohol Negative mg/dL (Negative) 05/03/21 01:14 Coronavirus (PCR) Not Detected (Not Detectd) 05/02/21 21:45 Vital Signs Temp 98.1 F 05/15/21 06:54 Pulse 76 05/15/21 06:54 Resp 16 05/14/21 06:47 BP 115/55 05/15/21 06:54 Pulse Ox 98 05/15/21 06:54 Intake & Output 05/15/21 05/16/21 05/16/21 18:59 06:59 18:59 Weight 63.3 kg Patient Condition at Discharge: Fair Plan - Discharge Summary New Discharge Prescriptions: New ARIPiprazole [Abilify] 5 mg PO DAILY 30 Days tab traZODone HCL [Desyrel] 50 mg PO HS 30 Days tab Nicotine 14Mg/24Hr Patch [Habitrol] 1 patch TRANSDERM DAILY 14 Days patch Discharge Medication List ARIPiprazole [Abilify] 5 mg PO DAILY 30 Days tab 05/16/21 [Rx] Nicotine 14Mg/24Hr Patch [Habitrol] 1 patch TRANSDERM DAILY 14 Days patch 05/16/21 [Rx] traZODone HCL [Desyrel] 50 mg PO HS 30 Days tab 05/16/21 [Rx] Follow up Appointment(s)/Referral(s): [facility] [Outside] - 05/22/21 2:30 pm (Intake at [facility] w/ Joellen) None,Stated [REFERRING] - 1-2 days Activity/Diet/Wound Care/Special Instructions: Activity and diet as tolerated. Avoid the use of street drugs and alcohol. Take all medications as prescribed. When you are in need of refills on your medications please contact your medical provider and/or outpatient psychiatrist to have this done. Please go to scheduled outpatient appointment for aftercare treatment. If symptoms return or become worse, call the crisis line at and/or go to the nearest emergency room for evaluation. Discharge Disposition: HOME SELF-CARE
== END 2021-05-16 12:35 | disposition home or self-care (01) | DRG 885 ==
LOC: EC 17:49 → 3MHU 05-03 00:34
PROVIDERS: ADMIT Psychiatry & Neurology Psychiatry; ATTEND Psychiatry & Neurology Psychiatry
DX: F31.2 Bipolar disorder, current episode manic severe with psychotic features (principal); R45.851 Suicidal ideations; R45.850 Homicidal ideations; Z20.822 Contact with and (suspected) exposure to COVID-19; T50.906A Underdosing of unspecified drugs, medicaments and biological substances, initial encounter; Z91.128 Patient's intentional underdosing of medication regimen for other reason; F41.9 Anxiety disorder, unspecified; F12.10 Cannabis abuse, uncomplicated; G47.00 Insomnia, unspecified; R45.87 Impulsiveness; F17.210 Nicotine dependence, cigarettes, uncomplicated; Z71.6 Tobacco abuse counseling; Z81.8 Family history of other mental and behavioral disorders
CPT/HCPCS: 80306; 81003; 82075; 87635; 99285

== ENCOUNTER 2021-05-26 11:45 | Emergency (ER) | payer BC ==
[2021-05-26 12:17] VITALS: RESP 18
--- NOTE | 2021-05-26 12:31 | ED ---
Psych HPI - General Source: patient, RN notes reviewed Mode of arrival: ambulatory Limitations: no limitations <Parminder Lenz - Last Filed: 05/26/21 15:30> <Kayla Carlin - Last Filed: 05/28/21 01:11> - General Chief Complaint: Psychiatric Symptoms Stated Complaint: Mental Health Time Seen by Provider: 05/26/21 12:22 - History of Present Illness Initial Comments: 20-year-old male presents emergency from with police via EMS for psychiatric evaluation. Patient reportedly had an argument with his grandparents may have possibly made some threats patient is denying at this time patient states he was recently discharged from psychiatric floor states she's was retaken Abilify but has not started taking it. He has been diagnosed with bipolar disorder. He does admit to marijuana use. Patient any alcohol abuse denies any physical complaints. (Parminder Lenz) - Related Data Previous Rx's Medication Instructions Recorded ARIPiprazole [Abilify] 5 mg PO DAILY 30 Days tab 05/16/21 Nicotine 14Mg/24Hr Patch [Habitrol] 1 patch TRANSDERM DAILY 14 Days 05/16/21 patch traZODone HCL [Desyrel] 50 mg PO HS 30 Days tab 05/16/21 Allergies Allergy/AdvReac Type Severity Reaction Status Date / Time No Known Allergies Allergy Verified 05/26/21 12:42 Review of Systems ROS Other: All systems not noted in ROS Statement are negative. <Parminder Lenz - Last Filed: 05/26/21 15:30> ROS Other: All systems not noted in ROS Statement are negative. <Kayla Carlin - Last Filed: 05/28/21 01:11> ROS Statement: Those systems with pertinent positive or pertinent negative responses have been documented in the HPI. Past Medical History Past Medical History: No Reported History History of Any Multi-Drug Resistant Organisms: None Reported Past Surgical History: No Surgical Hx Reported Past Psychological History: No Psychological Hx Reported Smoking Status: Light tobacco smoker Past Alcohol Use History: Occasional Past Drug Use History: Marijuana - Past Family History family Additional Family Medical History / Comment(s): mental health issues <Parminder Lenz - Last Filed: 05/26/21 15:30> General Exam Limitations: no limitations General appearance: alert, in no apparent distress, anxious Head exam: Present: atraumatic, normocephalic, normal inspection Eye exam: Present: normal appearance, PERRL, EOMI. Absent: scleral icterus, conjunctival injection, periorbital swelling ENT exam: Present: normal exam, normal oropharynx, mucous membranes moist, TM's normal bilaterally Neck exam: Present: normal inspection, full ROM. Absent: tenderness, meningismus, lymphadenopathy Respiratory exam: Present: normal lung sounds bilaterally. Absent: respiratory distress, wheezes, rales, rhonchi, stridor Cardiovascular Exam: Present: regular rate, normal rhythm, normal heart sounds. Absent: systolic murmur, diastolic murmur, rubs, gallop, clicks GI/Abdominal exam: Present: soft, normal bowel sounds. Absent: distended, tenderness, guarding, rebound, rigid Neurological exam: Present: alert, oriented X3 Psychiatric exam: Present: anxious Skin exam: Present: warm, dry, intact, normal color. Absent: rash <Parminder Lenz - Last Filed: 05/26/21 15:30> Course Vital Signs 05/26/21 05/26/21 12:12 16:09 Temperature 97.8 F 98.1 F Pulse Rate 73 76 Respiratory 18 18 Rate Blood Pressure 119/65 119/67 O2 Sat by Pulse 99 98 Oximetry Medical Decision Making <Parminder Lenz - Last Filed: 05/26/21 15:30> <Kayla Carlin - Last Filed: 05/28/21 01:11> - Medical Decision Making Patient was evaluated by EPS will be discharged in stable condition patient is also recent seen by [facility]. (Parminder Lenz) I was available for consultation in the emergency department. The history and physical exam were done by the midlevel provider. I was consulted for this patients care. I reviewed the case with the midlevel provider and based on their presentation of the patient, I agree with the assessment, medical decision making and plan of care as documented. Chart was dictated using [employer] dictation software. Attempts were made to correct any dictation errors however some typographical errors may persist. ( Kayla Carlin) Disposition Is patient prescribed a controlled substance at d/c from ED?: No Time of Disposition: 15:31 <Parminder Lenz - Last Filed: 05/26/21 15:30> <Damer,Kayla A - Last Filed: 05/28/21 01:11> Clinical Impression: Bipolar disorder Disposition: HOME SELF-CARE Condition: Stable Instructions (If sedation given, give patient instructions): Bipolar Disorder (ED) Additional Instructions: Please return to the Emergency Department if symptoms worsen or any other concerns. Referrals: Brian Collazo MD [Primary Care Provider] - 1-2 days
[2021-05-26] MEDS ORDERED: ARIPiprazole 5 MG TAB PO STA ×2 (15:29→15:31)
[2021-05-26 16:11] VITALS: BP 119/67; PULSE 76; TEMP 98.1
[2021-05-26] MEDS ORDERED: ARIPiprazole 5 MG TAB PO ONE (17:00)
== END 2021-05-26 16:11 | disposition home or self-care (01) ==
LOC: EC 11:45
DX: F31.9 Bipolar disorder, unspecified (principal); F17.200 Nicotine dependence, unspecified, uncomplicated
CPT/HCPCS: 82075; 99284

== ENCOUNTER 2021-05-30 15:32 | Emergency (ER) | payer BC ==
[2021-05-30 16:12] VITALS: TEMP 97.5
--- NOTE | 2021-05-30 17:08 | ED ---
General Adult HPI - General Chief complaint: Psychiatric Symptoms Stated complaint: Can Tester Order Time Seen by Provider: 05/30/21 16:56 Source: patient, RN notes reviewed, old records reviewed Mode of arrival: ambulatory Limitations: no limitations - History of Present Illness Initial comments: This is a well-appearing 20-year-old white male that presents to the emergency room on a pickup order from the [facility] for [facility]. There is no officer at bedside. Patient states that he was just seen here on May 26 and seen [facility] yesterday. He states that he was at home with his grandma when the 3 officers picked him up today. He states that he has no homicidal or suicidal ideations. He is not sure why he has been brought back to the emergency room. He has no physical complaints. He states he takes Abilify orally. He does smoke marijuana and cigarettes occasionally. He denies alcohol use. No other drug use. Severity scale (1-10): 0 Associated Symptoms: denies other symptoms Treatments Prior to Arrival: none - Related Data Previous Rx's Medication Instructions Recorded ARIPiprazole [Abilify] 5 mg PO DAILY 30 Days tab 05/16/21 Nicotine 14Mg/24Hr Patch [Habitrol] 1 patch TRANSDERM DAILY 14 Days 05/16/21 patch traZODone HCL [Desyrel] 50 mg PO HS 30 Days tab 05/16/21 Allergies Allergy/AdvReac Type Severity Reaction Status Date / Time No Known Allergies Allergy Verified 05/30/21 16:09 Review of Systems ROS Statement: Those systems with pertinent positive or pertinent negative responses have been documented in the HPI. ROS Other: All systems not noted in ROS Statement are negative. Past Medical History Past Medical History: No Reported History History of Any Multi-Drug Resistant Organisms: None Reported Past Surgical History: No Surgical Hx Reported Past Psychological History: No Psychological Hx Reported Smoking Status: Light tobacco smoker Past Alcohol Use History: Occasional Past Drug Use History: Marijuana - Past Family History family Additional Family Medical History / Comment(s): mental health issues General Exam Limitations: no limitations General appearance: alert, in no apparent distress Head exam: Present: atraumatic, normocephalic, normal inspection Eye exam: Present: normal appearance ENT exam: Present: normal exam, normal oropharynx, mucous membranes moist Neck exam: Present: normal inspection, full ROM. Absent: tenderness, meningismus, lymphadenopathy Respiratory exam: Present: normal lung sounds bilaterally. Absent: respiratory distress, wheezes, rales, rhonchi, stridor Cardiovascular Exam: Present: regular rate, normal rhythm, normal heart sounds. Absent: systolic murmur, diastolic murmur, rubs, gallop, clicks Extremities exam: Present: full ROM Neurological exam: Present: alert, oriented X3, normal gait Psychiatric exam: Present: normal affect, normal mood. Absent: depressed, agitated, flat affect, manic, homicidal ideation, suicidal ideation Skin exam: Present: warm, dry, intact, normal color. Absent: rash, cyanosis, diaphoretic Course Vital Signs 05/30/21 16:10 Temperature 97.5 F L Pulse Rate 96 Respiratory 20 Rate Blood Pressure 91/61 O2 Sat by Pulse 98 Oximetry Medical Decision Making - Medical Decision Making Male patient denies homicidal or suicidal ideations. He states that he was seen and evaluated here on May 26 and has seen [facility] yesterday. There is no officers at the bedside. He has been cleared medically to see the EPS nurse. EPS nurse states that she did confirm that the patient was seen by [facility] yesterday. He is okay to be discharged home Disposition Clinical Impression: Well adult exam Disposition: HOME SELF-CARE Condition: Good Additional Instructions: Continue taking your Abilify as previously prescribed. Follow-up with your primary care doctor and [facility] as scheduled. Return to the emergency room with any new or worsening symptoms. Is patient prescribed a controlled substance at d/c from ED?: No Referrals: Brian Collazo MD [Primary Care Provider] - 1-2 days Time of Disposition: 18:57
[2021-05-30] MEDS ORDERED: ARIPiprazole 5 MG TAB PO SCH (19:00)
[2021-05-30 19:26] VITALS: BP 105/70; PULSE 70; RESP 18
== END 2021-05-30 19:25 | disposition home or self-care (01) ==
LOC: EC 15:32
DX: F99 Mental disorder, not otherwise specified (principal); F17.210 Nicotine dependence, cigarettes, uncomplicated
CPT/HCPCS: 82075; 99284

== ENCOUNTER 2021-10-29 14:55 | Emergency (ER) | payer BC ==
[2021-10-29 16:04] VITALS: BP 126/73; PULSE 104; RESP 18; TEMP 98.6
--- NOTE | 2021-10-29 17:11 | ED ---
General Adult HPI - General Chief complaint: Psychiatric Symptoms Stated complaint: Mental Health Time Seen by Provider: 10/29/21 16:54 Source: patient, family, RN notes reviewed Mode of arrival: ambulatory Limitations: no limitations - History of Present Illness Initial comments: Patient is a pleasant 21-year-old male presenting to the emergency department with depression and suicidal thoughts. Symptoms haven't present for several weeks. Patient is off his medication. Patient has not been eating or sleeping well. No plan. No homicidal thoughts. No alcohol or street drugs. No new physical complaints. No hallucinations. - Related Data Home Medications Medication Instructions Recorded Confirmed No Known Home Medications 10/29/21 10/29/21 Allergies Allergy/AdvReac Type Severity Reaction Status Date / Time No Known Allergies Allergy Verified 10/29/21 18:14 Review of Systems ROS Statement: Those systems with pertinent positive or pertinent negative responses have been documented in the HPI. ROS Other: All systems not noted in ROS Statement are negative. Constitutional: Denies: fever Eyes: Denies: eye pain ENT: Denies: ear pain Respiratory: Denies: cough, dyspnea Cardiovascular: Denies: chest pain Endocrine: Denies: fatigue Gastrointestinal: Denies: abdominal pain Genitourinary: Denies: dysuria Musculoskeletal: Denies: back pain Skin: Denies: rash Neurological: Denies: weakness Psychiatric: Reports: depression, suicidal thoughts Past Medical History Past Medical History: No Reported History History of Any Multi-Drug Resistant Organisms: None Reported Past Surgical History: No Surgical Hx Reported Past Psychological History: No Psychological Hx Reported Smoking Status: Light tobacco smoker Past Alcohol Use History: Occasional Past Drug Use History: Marijuana - Past Family History family Additional Family Medical History / Comment(s): mental health issues General Exam Limitations: no limitations General appearance: alert, in no apparent distress Head exam: Present: normocephalic Eye exam: Present: normal appearance Neck exam: Present: normal inspection Respiratory exam: Present: normal lung sounds bilaterally Cardiovascular Exam: Present: regular rate, normal rhythm GI/Abdominal exam: Present: soft. Absent: tenderness Extremities exam: Present: normal inspection Neurological exam: Present: alert Psychiatric exam: Present: normal affect Skin exam: Present: normal color. Absent: abrasion Course Vital Signs 10/29/21 16:02 Temperature 98.6 F Pulse Rate 104 H Respiratory 18 Rate Blood Pressure 126/73 O2 Sat by Pulse 98 Oximetry Medical Decision Making - Medical Decision Making Patient seen by mental health services with plan for discharge and follow-up. Patient has an appointment set up on Friday. Patient denies suicidal ideation and does contract for safety. - Lab Data Lab Results 10/29/21 Range/Units 17:18 Urine Opiates Screen Not Detected (NotDetected) Ur Oxycodone Screen Not Detected (NotDetected) Urine Methadone Screen Not Detected (NotDetected) Ur Propoxyphene Screen Not Detected (NotDetected) Ur Barbiturates Screen Not Detected (NotDetected) U Tricyclic Antidepress Not Detected (NotDetected) Ur Phencyclidine Scrn Not Detected (NotDetected) Ur Amphetamines Screen Not Detected (NotDetected) U Methamphetamines Scrn Not Detected (NotDetected) U Benzodiazepines Scrn Not Detected (NotDetected) Urine Cocaine Screen Not Detected (NotDetected) U Marijuana (THC) Screen Detected H (NotDetected) Disposition Clinical Impression: Depression Disposition: HOME SELF-CARE Condition: Stable Instructions (If sedation given, give patient instructions): Help Prevent Suicide (ED), Depression (ED) Additional Instructions: Please do follow-up with your appointment Friday as planned. Please also follow-up to primary care physician in the next or 2 for recheck. Return for worsening thoughts, thoughts of self-harm, thoughts of harming others, worsening symptoms or other concerns. Is patient prescribed a controlled substance at d/c from ED?: No Referrals: Brian Collazo MD [Primary Care Provider] - 1-2 days Time of Disposition: 19:35
[2021-10-29 17:57] LABS: Amphetamine Screen,Urine Not Detected (NotDetected); Barbiturate Screen,Urine Not Detected (NotDetected); Benzodiazepines Screen,Urine Not Detected (NotDetected); Cocaine Screen,Urine Not Detected (NotDetected); Methadone Screen, Urine Not Detected (NotDetected); Opiate Screen,Urine Not Detected (NotDetected); Oxycodone Screen, Urine Not Detected (NotDetected); Phencyclidine Screen,Urine Not Detected (NotDetected); Tricyclic Antidepressant,Urine Not Detected (NotDetected); Urn Cannabinoid Scrn Detected (NotDetected)
== END 2021-10-29 19:00 | disposition home or self-care (01) ==
LOC: EC 14:55
DX: F32.A Depression, unspecified (principal); F17.210 Nicotine dependence, cigarettes, uncomplicated
CPT/HCPCS: 80306; 82075; 99284

== ENCOUNTER 2022-07-26 13:45 | Inpatient (IN) | payer BC ==
--- NOTE | 2022-07-26 14:26 | ED ---
General Adult HPI - General Chief complaint: Psychiatric Symptoms Stated complaint: Petition Time Seen by Provider: 07/26/22 14:21 Source: patient, police, RN notes reviewed Mode of arrival: ambulatory Limitations: no limitations - History of Present Illness Initial comments: Patient is a pleasant 21-year-old male presenting to the emergency department for mental health evaluation. Patient is brought by superintendent police. Patient states she knows he is being petitioned however does not believe he should be. Patient denies suicidal or homicidal thoughts. Patient denies any physical complaints. No alcohol use. Patient does smoke marijuana daily however no other street drugs. Patient has been eating and drinking normally. Patient has been sleeping normally. Patient states she does not have racing thoughts. Patient states he is not on any medication right now. Patient does not feel he needs to be on medication. 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 - Related Data Home Medications Medication Instructions Recorded Confirmed No Known Home Medications 10/29/21 07/26/22 Allergies Allergy/AdvReac Type Severity Reaction Status Date / Time No Known Allergies Allergy Verified 07/26/22 15:26 Review of Systems ROS Statement: Those systems with pertinent positive or pertinent negative responses have been documented in the HPI. ROS Other: All systems not noted in ROS Statement are negative. Constitutional: Denies: fever Eyes: Denies: eye pain ENT: Denies: ear pain Respiratory: Denies: cough Cardiovascular: Denies: chest pain Endocrine: Denies: fatigue Gastrointestinal: Denies: abdominal pain Genitourinary: Denies: urgency Musculoskeletal: Denies: back pain Skin: Denies: rash Neurological: Denies: weakness Psychiatric: Reports: as per HPI Past Medical History Past Medical History: No Reported History History of Any Multi-Drug Resistant Organisms: None Reported Past Surgical History: No Surgical Hx Reported Past Psychological History: Bipolar, Depression Smoking Status: Light tobacco smoker Past Alcohol Use History: Occasional Past Drug Use History: Marijuana - Past Family History family Additional Family Medical History / Comment(s): mental health issues General Exam Limitations: no limitations General appearance: alert, in no apparent distress Head exam: Present: normocephalic Eye exam: Present: normal appearance Neck exam: Present: normal inspection Respiratory exam: Present: normal lung sounds bilaterally Cardiovascular Exam: Present: regular rate, normal rhythm GI/Abdominal exam: Present: soft. Absent: tenderness Extremities exam: Present: normal inspection. Absent: pedal edema, calf tenderness Neurological exam: Present: alert Psychiatric exam: Present: other (Patient does appear hypomanic/slightly anxious) Skin exam: Present: normal color Course Vital Signs 07/26/22 13:47 Temperature 97 F L Pulse Rate 100 Respiratory 20 Rate Blood Pressure 140/100 O2 Sat by Pulse 97 Oximetry Medical Decision Making - Lab Data Lab Results 07/26/22 07/26/22 Range/Units 17:09 17:09 Urine Opiates Screen Not Detected (NotDetected) Ur Oxycodone Screen Not Detected (NotDetected) Urine Methadone Screen Not Detected (NotDetected) Ur Propoxyphene Screen Not Detected (NotDetected) Ur Barbiturates Screen Not Detected (NotDetected) U Tricyclic Antidepress Not Detected (NotDetected) Ur Phencyclidine Scrn Not Detected (NotDetected) Ur Amphetamines Screen Not Detected (NotDetected) U Methamphetamines Scrn Not Detected (NotDetected) U Benzodiazepines Scrn Not Detected (NotDetected) Urine Cocaine Screen Not Detected (NotDetected) U Marijuana (THC) Screen Detected H (NotDetected) Coronavirus (PCR) Not Detected (Not Detectd) Disposition Clinical Impression: Psychosis Disposition: TRANSFER TO PSYCH HOSP/UNIT Is patient prescribed a controlled substance at d/c from ED?: No
[2022-07-26 17:43] LABS: Amphetamine Screen,Urine Not Detected (NotDetected); Barbiturate Screen,Urine Not Detected (NotDetected); Benzodiazepines Screen,Urine Not Detected (NotDetected); Cocaine Screen,Urine Not Detected (NotDetected); Methadone Screen, Urine Not Detected (NotDetected); Opiate Screen,Urine Not Detected (NotDetected); Oxycodone Screen, Urine Not Detected (NotDetected); Phencyclidine Screen,Urine Not Detected (NotDetected); Tricyclic Antidepressant,Urine Not Detected (NotDetected); Urn Cannabinoid Scrn Detected (NotDetected)
[2022-07-26] MEDS ORDERED: MAG HYDROX/AL HYDROX/SIMETH 355 ML BOTTLE PO PRN (18:36)
[2022-07-26] MEDS ORDERED: HALOPERIDOL LACTATE 5 MG/ML 1 ML VIAL IM PRN (18:36)
[2022-07-26] MEDS ORDERED: ACETAMINOPHEN TAB 325 MG TAB PO PRN (18:36)
[2022-07-26] MEDS ORDERED: MAGNESIUM HYDROXIDE 2,400 MG/10 ML CUP PO PRN (18:36)
[2022-07-26] MEDS ORDERED: LORazepam 2 MG/ML INJ IM PRN (18:40)
[2022-07-26] MEDS: LORazepam 1 MG TAB PO PRN (21:50)
[2022-07-26] MEDS: haloperidoL 5 MG TAB PO PRN (21:50)
[2022-07-27] MEDS: ARIPiprazole 5 MG TAB PO SCH (08:20)
[2022-07-27] MEDS: NICOTINE 14MG/24HR PATCH TRANSDERM SCH (08:21)
[2022-07-27] MEDS: SERTRALINE 50 MG TAB PO SCH (15:37)
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
[2022-07-27] MEDS: LORazepam 1 MG TAB PO PRN (19:46)
[2022-07-27] MEDS: haloperidoL 5 MG TAB PO PRN (19:46)
[2022-07-28] MEDS: ARIPiprazole 5 MG TAB PO SCH (08:53)
[2022-07-28] MEDS: NICOTINE 14MG/24HR PATCH TRANSDERM SCH (08:53)
[2022-07-28] MEDS: SERTRALINE 50 MG TAB PO SCH (08:54)
--- NOTE | 2022-07-28 16:50 | P.MDCNMH ---
History of Present Illness H&P Date: 07/28/22 Chief Complaint: medical clearance and management 21 year old man with history of marijuana abuse, bipolar disorder presented for mental health evaluation due to delusions. Medicine consulted by psychiatry for medical evaluation and clearance. Patient states he is doing very well and has no complaints at this time. He denies history of heart disease, kidney disease, liver disease, high blood pressure, high cholesterol, diabetes. He takes no medications at home for medical conditions. Denies fevers, chills, nausea, vomiting, chest pain, palpitations, syncope, presyncope, cough, dyspnea, abdominal pain, constipation, diarrhea, dysuria, dyschezia, numbness/weakness of extremities. My evaluation, patient is human dynamically stable, afebrile. Urine tox is positive for cannabis, otherwise negative. No images to review. All Systems reviewed and pertinent positives and negatives noted in HPI, all other symptoms are negative Gen: in no apparent distress, resting comfortably in bed Eyes: PERRL, no scleral injection or icterus HENT: normocephalic, atraumatic, good hearing acuity, moist mucous membranes Neck: no tracheal deviation, full range of motion Resp: good air exchange, breathing comfortably with no accessory muscle use, no tactile fremitus CVS: good distal perfusion x 4, no pitting edema GI: soft, NTTP, ND, no hepatosplenomegaly : no suprapubic tenderness, no CVAT, monte catheter not present MSK: no clubbing, no cyanosis, no noted contractures of extremities Skin: no noted rashes, petechiae; temperature of skin is appropriate Neuro: moving all extremities without signs of weakness, CN II-XII intact Psych: cooperative, euthymic mood, insight and judgment intact Labs and imaging reviewed as above Assessment/plan: Marijuana abuse -Cessation counseling advised Bipolar disorder -Care per primary team Date for this consult. A member of her team is available 10/03, should any questions or concerns arise, please reach out via perfect serve. Past Medical History Past Medical History: No Reported History History of Any Multi-Drug Resistant Organisms: None Reported Past Surgical History: No Surgical Hx Reported Past Psychological History: Bipolar, Depression Smoking Status: Light tobacco smoker Past Alcohol Use History: Occasional Past Drug Use History: Marijuana - Past Family History family Additional Family Medical History / Comment(s): mental health issues Medications and Allergies Home Medications Medication Instructions Recorded Confirmed Type No Known Home Medications 10/29/21 07/26/22 History Allergies Allergy/AdvReac Type Severity Reaction Status Date / Time No Known Allergies Allergy Verified 07/26/22 15:26 Physical Exam Osteopathic Statement: *. No significant issues noted on an osteopathic structural exam other than those noted in the History and Physical/Consult. Vitals: Vital Signs Temp Pulse Resp BP 07/28/22 05:43 97.5 F L 109 H 18 123/69 Intake and Output 07/28/22 07/28/22 07/28/22 06:59 14:59 22:59 Other: Weight 66.1 kg Cranial Nerve Examination - Cranial Nerves Cranial Nerve II- Optic: Intact Cranial Nerve III- Oculomotor: Intact Cranial Nerve IV- Trochlear: Intact Cranial Nerve V- Trigeminal: Intact Cranial Nerve - Abducens: Intact Cranial Nerve VII- Facial: Intact Cranial Nerve VIII- Auditory: Intact Cranial Nerve IX- Glossopharyngeal: Intact Cranial Nerve X- Vagus: Intact Cranial Nerve XI- Accessory: Intact Cranial Nerve XII- Hypoglossal: Intact
--- NOTE | 2022-07-28 20:12 | P.PN ---
Progress Note - Text Progress Note Date: 07/28/22 Interval history: Patient was seen wandering the hallways and was directable and agreeable to speak with comic writer. He reports his mood is good today, but objectively he appears to minimize his anxiety and irritability in hopes of discharge. He continues to appear impulsive. At this time patient denies any suicidal or homicidal ideation, intent or plan. Denies any auditory or visual hallucinations. Patient denies any side effects from the medications and has been compliant with meds. He has not spoken to his family since admission, and appears to get upset and anxious when discussing hsi family. We discussed the addition of Trileptal for mood stabilization and he declines, states he wants to stay on the Zoloft and see how that works. He continues to contradict himself, reports he plans to move out of his family home and leave on a long trip but then states he wants to set up therapy locally after discharge. When asked how he will attend therapy if he plans to leave on a long trip he states "oh, maybe I won't go [on the trip] then." Mental status exam: General Appearance: Patient appears to be stated age, slender tall male with facial hair. Patient appears to have adequate hygiene and grooming. Behavior: Patient is without any agitated behavior, but appears impulsive. Speech: Patient's speech is fluent, rapid, at times loud, but not pressured. Mood/Affect: Patient reports their mood is "good", affect is labile/anxious. Suicidality/Homicidality: Patient denies having any homicidal ideation intent or plan. Denies any suicidal ideation, intent or plan. Perceptions: Patient denies any visual hallucinations and denies any auditory hallucinations. Though content/process: There is evidence of grandiose ideations, but does not appear to be of delusional intensity. His thought process is linear. Memory and concentration: AOX3, grossly intact for the purposes of this session. Judgment and insight: improving mildly Assessment/Plan: Continue with current diagnosis. Patient continues to meet criteria for inpatient psychiatric admission for symptom stabilization and safety. Patient will be maintained on current psychotropic medication regimen. He would benefit from the addition of a mood stabilizer but is declining this currently. He would benefit from DBT oriented therapy following discharge. Monitor for medication compliance and for any psychotropic medication side effects. Will continue to monitor ongoing response to treatment. Encouraged participation in milieu.
[2022-07-28] MEDS: LORazepam 1 MG TAB PO PRN (20:40)
[2022-07-29] MEDS: SERTRALINE 50 MG TAB PO SCH (09:53)
[2022-07-29] MEDS: NICOTINE 14MG/24HR PATCH TRANSDERM SCH (09:53)
[2022-07-29] MEDS: ARIPiprazole 5 MG TAB PO SCH (11:27)
--- NOTE | 2022-07-29 11:47 | P.PN ---
Progress Note - Text Progress Note Date: 07/29/22 Interval History: Patient was seen pacing the hallways today and was agreeable to speak with georgina campo in the office. Patient was hyperverbal today and demonstrated some pressured speech. He was minimizing his need for being in the hospital and claims that "my family is out it again". She explained that his father called the police on him and does not know why. He claims that he does not need to be in the hospital and does not need medications. He had racing thoughts and was difficult to redirect at times. He has very poor insight or judgment low frustration tolerance. She was argumentative today with comic book writer about treatment and demanded to speak to his straddle buggy operator. He is denying any depression at this time. He claims that he agrees with the other doctor's opinion and not writers. He is denying any anxiety today. He claims that he has been trying to go to groups and participate as best as he can. He claims that he is able to sleep fairly at night, fair appetite. At this time patient denies any suicidal or homical ideations, intent or plan. Patient denies any auditory, visual hallucinations. Mental Status Exam: General Appearance: Patient appears to be thin, stated age is alert, difficult to redirect. Patient appears to have mildly hygiene and grooming. Behavior: Patient is seated without any agitated behavior. Argumentative and hostile Speech: Patient's speech is more fluent and rapid rate. Mood/Affect: Patient reports their mood is "fine", affect is incongruent Suicidality/Homicidality: Patient denies having any homicidal ideation intent or plan. Denies any suicidal ideations intent or plan Perceptions: Patient denies any visual hallucinations and denies any auditory hallucinations Though content/process: Rambles at times. Goal oriented. Argumentative. Minimizing his symptoms and need for medications. Memory and concentration: AOX3, grossly intact for the purposes of this session Judgment and insight: Poor/superficial. Assessment Bipolar disorder, current episode manic Cannabis use disorder Plan: -Patient continues to meet criteria for inpatient psychiatric admission for symptom stabilization and safety. Patient has signed adult voluntary form and medication consent and was placed in patient's chart -Medications: restart Abilify 5 mg daily for mood stabilization/psychosis. patient is against taking medications and if patient refuses then will likely have to go ahead with involuntary process. trazodone 50 mg qhs prn for insomnia -When necessary Ativan and Haldol for agitation/aggression -NRT - not needed as patient does not smoke -SW on board for discharge planning. Encouraged the patient to participate in milieu. will start court process tomorrow if patient is refusing meds.
[2022-07-29] MEDS: LORazepam 1 MG TAB PO PRN (20:16)
[2022-07-29] MEDS: traZODone HCL 50 MG TAB PO PRN (21:53)
[2022-07-30] MEDS: NICOTINE 14MG/24HR PATCH TRANSDERM SCH (07:56)
[2022-07-30] MEDS: ARIPiprazole 5 MG TAB PO SCH (07:56)
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
[2022-07-30] MEDS: traZODone HCL 50 MG TAB PO PRN (19:57)
[2022-07-30] MEDS: LORazepam 1 MG TAB PO PRN (22:31)
[2022-07-31] MEDS: ARIPiprazole 5 MG TAB PO SCH (07:50)
[2022-07-31] MEDS: NICOTINE 14MG/24HR PATCH TRANSDERM SCH (08:55)
[2022-07-31 10:00] VITALS: RESP 18
--- NOTE | 2022-07-31 11:19 | P.PN ---
Progress Note - Text Progress Note Date: 07/31/22 Interval History: Patient was seen pacing the hallways today and was agreeable to speak with georgina campo in the office. Patient claims that he is doing better today. He was fairly directable during conversation. He is denying any depression or anxiety at this time. He claims that he did take the Abilify again this morning. He states that he took an Ativan last night because "I just wanted to sleep" and claims that the trazodone wasn't enough for him. He declined having the trazodone increased for tonight. He states that he slept well after taking the Ativan. He states that he has not been threatening his parents or any of his family members over the phone and claims "my dad is just lying to keep me in here". He claims that he does not want to go back to the home and would rather stay with his friend Tai. Patient's insight and judgment appear to be mildly improving today. He is eating fairly. He claims that he is conversing with others on the unit. He is agreeable to continue with his medications. At this time patient denies any suicidal or homical ideations, intent or plan. Patient denies any auditory, visual hallucinations. Mental Status Exam: General Appearance: Patient appears to be thin, stated age is alert, more directable today. Patient appears to have mildly hygiene and grooming. Behavior: Patient is seated without any agitated behavior. Directable today. Speech: Patient's speech is more fluent and normal rate Mood/Affect: Patient reports their mood is "fine", affect is congruent and improving. Suicidality/Homicidality: Patient denies having any homicidal ideation intent or plan. Denies any suicidal ideations intent or plan Perceptions: Patient denies any visual hallucinations and denies any auditory hallucinations Though content/process: Rambles at times. Goal oriented. No delusions or paranoia. Memory and concentration: AOX3, grossly intact for the purposes of this session Judgment and insight: improving mildly Assessment Bipolar disorder, current episode manic Cannabis use disorder Plan: -Patient continues to meet criteria for inpatient psychiatric admission for symptom stabilization and safety. Patient has signed adult voluntary form and medication consent and was placed in patient's chart -Medications: continue Abilify 5 mg daily for mood stabilization/psychosis. trazodone 50 mg qhs prn for insomnia -When necessary Ativan and Haldol for agitation/aggression -NRT - not needed as patient does not smoke -SW on board for discharge planning. Encouraged the patient to participate in milieu. Likely dishcarge tomorrow if patient continues to take his medications. tree and shrub worker claims that she spoke with patient's friend Tai and that he is okay with having patient stay with him upon discharge. Patient will not be going back to the home. There are no guns or weapons in the home where he is going to.
[2022-07-31] MEDS: LORazepam 1 MG TAB PO PRN (20:10)
[2022-07-31] MEDS: traZODone HCL 50 MG TAB PO PRN (21:06)
[2022-08-01] MEDS ORDERED: traZODone HCL 50 MG TAB PO STA (00:04)
[2022-08-01 07:49] VITALS: BP 134/85; PULSE 110; TEMP 97.1
[2022-08-01] MEDS: ARIPiprazole 5 MG TAB PO SCH (07:49)
[2022-08-01] MEDS: NICOTINE 14MG/24HR PATCH TRANSDERM SCH (07:50)
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
== END 2022-08-01 16:25 | disposition home or self-care (01) | DRG 885 ==
LOC: EC 13:45 → 3MHU 18:34
PROVIDERS: ADMIT Psychiatry & Neurology Psychiatry; ATTEND Psychiatry & Neurology Psychiatry
DX: F31.10 Bipolar disorder, current episode manic without psychotic features, unspecified (principal); R45.851 Suicidal ideations; F22 Delusional disorders; F60.81 Narcissistic personality disorder; F60.89 Other specific personality disorders; G47.00 Insomnia, unspecified; R45.850 Homicidal ideations; Z53.20 Procedure and treatment not carried out because of patient's decision for unspecified reasons; F12.10 Cannabis abuse, uncomplicated; F17.200 Nicotine dependence, unspecified, uncomplicated; F41.9 Anxiety disorder, unspecified; Z81.8 Family history of other mental and behavioral disorders; Z91.14 Patient's other noncompliance with medication regimen; Z28.21 Immunization not carried out because of patient refusal; Z20.822 Contact with and (suspected) exposure to COVID-19
CPT/HCPCS: 80306; 82075; 87635

== ENCOUNTER 2022-08-13 20:04 | Inpatient (IN) | payer BC ==
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
[2022-08-14] MEDS ORDERED: ZIPRASIDONE 20 MG VIAL IM STA (01:32)
[2022-08-14] MEDS ORDERED: ACETAMINOPHEN TAB 325 MG TAB PO PRN (01:35)
[2022-08-14] MEDS ORDERED: MAG HYDROX/AL HYDROX/SIMETH 30 ML CUP PO PRN (01:35)
[2022-08-14] MEDS ORDERED: MAGNESIUM HYDROXIDE 2,400 MG/10 ML CUP PO PRN (01:35)
[2022-08-14] MEDS ORDERED: LORazepam 2 MG/ML INJ IM PRN (01:43)
[2022-08-14] MEDS ORDERED: LORazepam 1 MG TAB PO PRN (01:43)
[2022-08-14] MEDS ORDERED: chlorproMAZINE 25 MG/ML 2 ML AMP IM PRN (01:46)
[2022-08-14] MEDS ORDERED: chlorproMAZINE 25 MG TAB PO PRN (01:46)
[2022-08-14] MEDS ORDERED: diphenhydrAMINE 50 MG/ML 1 ML VIAL IM PRN (01:47)
[2022-08-14] MEDS ORDERED: diphenhydrAMINE 50 MG CAP PO PRN (01:47)
[2022-08-14] MEDS ORDERED: traZODone HCL 100 MG TAB PO PRN (10:18)
[2022-08-14] MEDS: ARIPiprazole 5 MG TAB PO SCH ×2 (11:12→14:57)
[2022-08-14 11:33] VITALS: BMI 18.8
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
--- NOTE | 2022-08-14 17:39 | P.MDCNMH ---
<Jarrod Goss - Last Filed: 08/14/22 18:08> History of Present Illness H&P Date: 08/14/22 History of Presenting Illness: Patient is a pleasant 22-year-old male with a past medical history of daily cannabinoid use and bipolar disorder. He is currently admitted to mental health unit for treatment of manic episode after being brought into the emergency department by the police and petitioned for reports of homicidal ideations. We have been consulted for medical H&P at this time. Patient was seen and fully evaluated on mental health unit. Patient alert and oriented to person, place, time, and situation. Patient very hyperverbal throughout entire assessment and even tearful at one point. Patient denies having suicidal or homicidal ideations, patient reports he is just hyper. He reports daily cannabinoid use but denies having any nicotine use or alcohol use and denies any other drug use. Patient denies past medical history and currently denies having any complaints including headache, lightheadedness, dizziness, chest pain, palpitations, shortness of breath, abdominal pain, nausea, vomiting, tremors, or experiencing any numbness/tingling/weakness in his extremities. Review of systems: Pertinent positives and negatives as discussed in HPI, a complete review of systems was performed and all other systems are negative. Physical exam: Vital signs reviewed and stable. General: Nontoxic, no distress and appears stated age. Derm: Skin warm and dry, normal coloration for ethnicity. Head: Atraumatic, normocephalic and symmetric. Eyes: EOMs intact, no lid lag, and anicteric sclera Mouth: no lip lesions, mucus membranes moist Cardiovascular: Tachycardic rate and regular rhythm with normal S1S2, no murmur, positive posterior tibial pulses bilaterally, and cap refill < 2 seconds. Lungs: Respirations even, regular, and unlabored on room air. Lungs CTA bilaterally, no rhonchi, no rales, no wheezing, and no accessory muscle usage. Abdominal: soft, nontender to palpation, no guarding, no appreciable organomegaly Ext: ROM intact. No gross muscle atrophy, no edema, no contractures Neuro: Hyperverbal Speech, face symmetrical and CN II-XII grossly intact with no noted focal neuro deficits Psych: Alert and oriented to person, place, time, and situation. Patient pleas ant and cooperative throughout assessment but appeared anxious and hyperactive Assessment and Plan of Care: Cannabinoid use disorder -Recommend cessation of all cannabinoid products. Manic episode Bipolar disorder Homicidal ideations -Provide safe and supportive care. -Management per primary admitting psychiatric team including medication management. Thank you for allowing us to participate in the care of this pleasant patient. Do not hesitate to contact us with questions. Someone can be reached from the [facility] hospitalist group all hours of the day at [phone] or via [employer]. Past Medical History Past Medical History: No Reported History History of Any Multi-Drug Resistant Organisms: None Reported Past Surgical History: No Surgical Hx Reported Past Psychological History: Bipolar, Depression Smoking Status: Current some day smoker Past Alcohol Use History: Occasional Past Drug Use History: Marijuana - Past Family History family Additional Family Medical History / Comment(s): mental health issues Medications and Allergies Home Medications Medication Instructions Recorded Confirmed Type No Known Home Medications 08/13/22 08/13/22 History Allergies Allergy/AdvReac Type Severity Reaction Status Date / Time No Known Allergies Allergy Verified 08/13/22 21:10 Physical Exam Vitals: Vital Signs Temp Pulse Pulse Resp BP BP Pulse Ox 08/14/22 07:04 97.5 F L 84 18 133/69 99 08/14/22 05:38 106 H 18 110/79 98 08/13/22 20:12 97.8 F 116 H 18 132/93 98 Intake and Output 08/14/22 08/14/22 08/14/22 06:59 14:59 22:59 Other: Weight 63.1 kg 63.1 kg Cranial Nerve Examination - Cranial Nerves Cranial Nerve I- Olfactory: Intact Cranial Nerve II- Optic: Intact Cranial Nerve III- Oculomotor: Intact Cranial Nerve IV- Trochlear: Intact Cranial Nerve V- Trigeminal: Intact Cranial Nerve - Abducens: Intact Cranial Nerve VII- Facial: Intact Cranial Nerve VIII- Auditory: Intact Cranial Nerve IX- Glossopharyngeal: Intact Cranial Nerve X- Vagus: Intact Cranial Nerve XI- Accessory: Intact Cranial Nerve XII- Hypoglossal: Intact <Yael Shen - Last Filed: 08/15/22 21:00> History of Present Illness Jarrod Goss NP rendered care for this patient independently, reviewed the findings and plan as documented in the note above. I did not physically speak with or examine the patient on this date. Physical Exam Osteopathic Statement: *. No significant issues noted on an osteopathic structural exam other than those noted in the History and Physical/Consult. Vitals: Vital Signs Temp Pulse Resp BP 08/15/22 06:55 97.9 F 105 H 16 103/55
[2022-08-15] MEDS: ARIPiprazole 5 MG TAB PO SCH (09:47)
[2022-08-15] MEDS ORDERED: LORazepam 1 MG TAB PO PRN (11:34)
--- NOTE | 2022-08-15 11:36 | P.PN ---
Progress Note - Text Progress Note Date: 08/15/22 Interval History: Patient was seen [wandering the hallways] and was directable and agreeable to speak with justowriter operator in the office. Patient continues to pace back and forth to the hallways. She was continuing to demonstrate argumentativeness today with brighter about his medications. States that he does not want a long-acting injection and the longer. He claims that he does not need medications. He continues to minimize his need for hospitalization and states that "I didn't threaten anybody". He continues to endorse that his family are "liars". These have poor frustration tolerance. States that she did not sleep well last night and required Thorazine for sleep. At this time patient denies any suicidal or homical ideations, intent or plan. Patient denies any auditory, visual hallucinations and denies any paranoia or delusions. Patient denies any side effects from the medications and has been compliant with meds. Mental Status Exam: General Appearance: Patient appears to be thin, shaved head, stated age, slender male. Patient appears to have adequate hygiene and grooming. Behavior: Patient is seated without any agitated behavior. He does pace the hallways. Speech: Patient's speech is fluent, rapid, argumentative. Mood/Affect: Patient reports their mood is "alright", affect is labile. Suicidality/Homicidality: Patient denies having any homicidal ideation intent or plan. Denies any suicidal ideations intent or plan. Perceptions: Patient denies any visual hallucinations and denies any auditory hallucinations. Though content/process: There is evidence of grandiose ideations, but does not appear to be of delusional intensity. Endorsing paranoia. His thought process is linear. Memory and concentration: AOX3, grossly intact for the purposes of this session. Judgment and insight: poor IMPRESSIONS: Bipolar disorder, manic episode Cannabis use disorder Plan: -Patient continues to meet criteria for inpatient psychiatric admission for symptom stabilization and safety. Patient has [not] signed [adult voluntary form and] was placed in patient's chart. -Medications: []Abilify 5 mg daily for mood stabilization, the plan will be to transition onto a long-acting injection. Trazodone 100 mg daily at bedtime for sleep. melatonin 6 mg qhs for sleep. -When necessary Thorazine prn for agitation/aggression. -NRT - [nicotine patch] -SW on board for discharge planning. Encouraged the patient to participate in milieu. [Currently awaiting deferral with patent attorney and court date.] []
[2022-08-15] MEDS: MELATONIN 3 MG TABLET PO SCH (20:48)
[2022-08-15] MEDS: traZODone HCL 100 MG TAB PO SCH (20:48)
[2022-08-16] MEDS: ARIPiprazole 5 MG TAB PO SCH (08:21)
--- NOTE | 2022-08-16 11:33 | P.PN ---
Progress Note - Text Progress Note Date: 08/16/22 Interval History: Patient was seen wandering the hallways and was directable and agreeable to meera azevedo with telegraphic typewriter mechanic in the office. Patient continues to pace back and forth to the hallways and states that he has only been going to some groups. He claims that he prefers to walk the hallways instead. He claims that he is doing "okay" and did not complain of any changes or any problems with the medications. He states that he is sleeping much better on the trazodone and melatonin. He claims that he is not feeling tired during the day. He claims that his mood and anxiety even improving. He continues to focus in on the court process. We spoke about the long-acting injection which he is okay with taking on Friday. Things to be focused on discharge. Not argumentative today. At this time patient denies any suicidal or homical ideations, intent or plan. Patient denies any auditory, visual hallucinations and denies any delusions. Patient denies any side effects from the medications and has been compliant with meds. Mental Status Exam: General Appearance: Patient appears to be thin, shaved head, stated age, slender male. Patient appears to have adequate hygiene and grooming. Behavior: Patient is seated without any agitated behavior. He does pace the hallways. Speech: Patient's speech is fluent, rapid, not argumentative. Mood/Affect: Patient reports their mood is "ok", affect is congruent. Suicidality/Homicidality: Patient denies having any homicidal ideation intent or plan. Denies any suicidal ideations intent or plan. Perceptions: Patient denies any visual hallucinations and denies any auditory hallucinations. Though content/process: His thought process is linear. Rambles at times. Memory and concentration: AOX3, grossly intact for the purposes of this session. Judgment and insight: poor, improving mildly IMPRESSIONS: Bipolar disorder, manic episode Cannabis use disorder Plan: -Patient continues to meet criteria for inpatient psychiatric admission for symptom stabilization and safety. Patient has not signed adult voluntary form and was placed in patient's chart. -Medications: increase Abilify 7.5 mg daily for mood stabilization, the plan will be to transition onto a long-acting injection, will be given on friday. Trazodone 100 mg daily at bedtime for sleep. melatonin 6 mg qhs for sleep. -When necessary Thorazine prn for agitation/aggression. -NRT - nicotine patch -SW on board for discharge planning. Encouraged the patient to participate in milieu. Patient signed deferral with his attorney general. Will transition patient onto [facility] friday and likely discharge friday.
[2022-08-16] MEDS: traZODone HCL 100 MG TAB PO SCH (20:25)
[2022-08-16] MEDS: MELATONIN 3 MG TABLET PO SCH (20:25)
[2022-08-17] MEDS ORDERED: ARIPiprazole 5 MG TAB PO SCH (09:00)
--- NOTE | 2022-08-17 09:39 | P.PN ---
Subjective Progress Note Date: 08/17/22 Principal diagnosis: Bipolar 1 manic Patient was seen wandering the hallways and was directable and agreeable to speak with board writer in the office. Patient continues to pace back and forth to the hallways and states that he has only been going to some groups. However he sat calmly through the whole interview and does not seem to have akathisia. He claims that he is doing "okay" and did not complain of any changes or any problems with the medications. He states that he is sleeping much better on the trazodone and melatonin. He claims that he is not feeling tired during the day. He claims that his mood and anxiety have been improving. He says that he is looking forward to getting a shot once a month and does not have any negative side effects on the Abilify at this point and was in tune with the fact that we are going to be increasing to 10 mg over the weekend.. At this time patient denies any suicidal or homical ideations, intent or plan. Patient denies any auditory, visual hallucinations and denies any delusions. Patient denies any side effects from the medications and has been compliant with meds. Mental Status Exam: Good eye, contact cooperative General Appearance: Patient appears to be thin, shaved head, stated age, slender male. Patient appears to have adequate hygiene and grooming. Behavior: Patient is seated without any agitated behavior. He does pace the hallways. Speech: Patient's speech is fluent, normal in rate and volume, not argumentative. Mood/Affect: Patient reports their mood is "ok", affect is congruent and pleasant. Suicidality/Homicidality: Patient denies having any homicidal ideation intent or plan. Denies any suicidal ideations intent or plan. Perceptions: Patient denies any visual hallucinations and denies any auditory hallucinations and there was no evidence of responding to voices. Though content/process: His thought process is linear. Seems to be staying on topic well. I did some educating on the purpose and benefits of medications and bipolar and what else he needed to do to stay stable and he was able to repeat that and was appreciative. Memory and concentration: AOX3, grossly intact for the purposes of this session. Judgment and insight: improving mildly IMPRESSIONS: Bipolar disorder, manic episode Cannabis use disorder Plan: -Patient continues to meet criteria for inpatient psychiatric admission for symptom stabilization and safety. Patient has not signed adult voluntary form and was placed in patient's chart. -Medications: We will further increase Abilify to 10 mg this week mg daily for mood stabilization, the plan will be to transition onto a long-acting injection, will be given on friday. Trazodone 100 mg daily at bedtime for sleep. melatonin 6 mg qhs for sleep which he says is working well. -When necessary Thorazine prn for agitation/aggression which she has not needed. -NRT - nicotine patch -SW on board for discharge planning. Encouraged the patient to participate in milieu. Patient signed deferral with his family law attorney. Will transition patient onto [facility] friday and likely discharge friday. Objective - Vital Signs Vital signs: Vital Signs Temp 98.0 F 08/17/22 06:23 Pulse 97 08/17/22 06:23 Resp 16 08/17/22 06:23 BP 108/68 08/17/22 06:23 Pulse Ox 99 08/17/22 06:23 FiO2
[2022-08-17] MEDS: NICOTINE 21MG/24HR PATCH TRANSDERM SCH (15:20)
[2022-08-17] MEDS: traZODone HCL 100 MG TAB PO SCH (21:44)
[2022-08-17] MEDS: MELATONIN 3 MG TABLET PO SCH (21:44)
[2022-08-18] MEDS: ARIPiprazole 10 MG TAB PO SCH (08:47)
[2022-08-18] MEDS: NICOTINE 21MG/24HR PATCH TRANSDERM SCH (08:47)
--- NOTE | 2022-08-18 09:14 | P.PN ---
Subjective Progress Note Date: 08/18/22 Principal diagnosis: Bipolar 1 manic Subjective Principal diagnosis: Bipolar 1 manic Patient came readily to speak with technical report writer in the office. Patient continues to pace back and forth to the hallways and states that he has only been going to some groups. However he sat calmly through the whole interview and does not seem to have akathisia. He is very positive about the benefit of the Abilify. He talked about how he takes medicine, does better, then feels like he doesn't need it, and relapses,(I educated him on the fact that his illness is a kindled illness and each time he lets himself relapse he winds up with a worse illness than he had) He claims that he is doing "okay" and did not complain of any changes or any problems with the medications. He states that he is sleeping much better on the trazodone and melatonin. He claims that he is not feeling tired during the day. He claims that his mood and anxiety have been improving. He says that he is looking forward to getting a shot once a month and does not have any negative side effects on the Abilify at this point and was in tune with the fact that we are going to be increasing to 10 mg over the weekend.. At this time patient denies any suicidal or homical ideations, intent or plan. Patient denies any auditory, visual hallucinations and denies any delusions, and I did not see any evidence thereof. Patient denies any side effects from the med ications and has been compliant with meds. Mental Status Exam: Good eye, contact cooperative and pleasant and grateful for teaching and for help General Appearance: Patient appears to be thin, shaved head, stated age, slender male. Patient appears to have adequate hygiene and grooming. Behavior: Patient is seated without any agitated behavior. He does pace the hallways. Speech: Patient's speech is fluent, normal in rate and volume, not argumentative. Mood/Affect: Patient reports their mood is "ok", affect is congruent and pleasant. Suicidality/Homicidality: Patient denies having any homicidal ideation intent or plan. Denies any suicidal ideations intent or plan. Perceptions: Patient denies any visual hallucinations and denies any auditory hallucinations and there was no evidence of responding to voices. Though content/process: His thought process is linear. Seems to be staying on topic well. I did some educating on the purpose and benefits of medications and bipolar and what else he needed to do to stay stable and he was able to repeat that and was appreciative. Memory and concentration: AOX3, grossly intact for the purposes of this session. Judgment and insight: improving mildly Assessment: Patient is benefiting from medication and improving Diagnoses: Bipolar disorder, manic episode Cannabis use disorder Plan: -Patient continues to meet criteria for inpatient psychiatric admission for symptom stabilization and safety. Patient has not signed adult voluntary form and was placed in patient's chart. -Medications: We will further increase Abilify to 10 mg this week mg daily for mood stabilization, the plan will be to transition onto a long-acting injection, will be given on friday. Trazodone 100 mg daily at bedtime for sleep. melatonin 6 mg qhs for sleep which he says is working well. -When necessary Thorazine prn for agitation/aggression which he has not needed. -NRT - nicotine patch -SW on board for discharge planning. The patient has been in heart dissipating in the milieu and relating well with other peers. Patient signed deferral with his gaggerman. Will transition patient onto [facility] friday and likely discharge friday. Objective Objective - Vital Signs Vital signs: Vital Signs Temp 97.8 F 08/18/22 04:41 Pulse 125 H 08/18/22 04:41 Resp 18 08/18/22 04:41 BP 127/87 08/18/22 04:41 Pulse Ox 99 08/18/22 04:41 FiO2
[2022-08-18] MEDS: MELATONIN 3 MG TABLET PO SCH (19:59)
[2022-08-18] MEDS: traZODone HCL 100 MG TAB PO SCH (19:59)
[2022-08-19 06:57] VITALS: TEMP 98.8
[2022-08-19] MEDS: ARIPiprazole 10 MG TAB PO SCH (08:05)
[2022-08-19] MEDS: NICOTINE 21MG/24HR PATCH TRANSDERM SCH (08:05)
[2022-08-19] MEDS ORDERED: ARIPiprazole IM 400 MG VIAL (NO COST) PHARMACY STOCK IM ONE (11:13)
--- NOTE | 2022-08-19 11:17 | P.PN ---
Progress Note - Text Progress Note Date: 08/19/22 Interval History: Patient was seen wandering the hallways and was directable and agreeable to meera azevedo with underwriter mortgage loan in the office. Patient continues to pace back and forth to the hallways. He states that he is doing fairly well today. He spoke about watching the football game of the weekend. He claims that he is not having any problems with medications at this time. We spoke about long-acting injection which she was okay with. He claims that he still wants to go back to his grandmother's house because "they need to evict me legally" and then he will find a new place to live. He claims that his mood is "fine" and denying any depression today and anxiety symptoms. States that he slips sleeps fairly at nighttime. Denies any problems with appetite. At this time patient denies any suicidal or homical ideations, intent or plan. Patient denies any auditory, visual hallucinations and denies any delusions. Patient denies any side effects from the medications and has been compliant with meds. Mental Status Exam: General Appearance: Patient appears to be thin, shaved head, stated age, slender male. Patient appears to have adequate hygiene and grooming. Behavior: Patient is seated without any agitated behavior. He does pace the hallways. Speech: Patient's speech is fluent, rapid, or cooperative today. Mood/Affect: Patient reports their mood is "alright", affect is congruent. Suicidality/Homicidality: Patient denies having any homicidal ideation intent or plan. Denies any suicidal ideations intent or plan. Perceptions: Patient denies any visual hallucinations and denies any auditory hallucinations. Though content/process: His thought process is linear. Rambles at times. Not endorsing delusions today. Memory and concentration: AOX3, grossly intact for the purposes of this session. Judgment and insight: poor, improving mildly IMPRESSIONS: Bipolar disorder, manic episode Cannabis use disorder Plan: -Patient continues to meet criteria for inpatient psychiatric admission for symptom stabilization and safety. Patient has not signed adult voluntary form and was placed in patient's chart. -Medications: continue Abilify 10 mg daily for mood stabilization, ordered Abilify Maintenna 400 mg IM today. Trazodone 100 mg daily at bedtime for sleep. melatonin 6 mg qhs for sleep. -When necessary Thorazine prn for agitation/aggression. -NRT - nicotine patch -SW on board for discharge planning. Encouraged the patient to participate in milieu. Patient signed deferral with his criminal attorney. likely discharge friday.
[2022-08-19] MEDS: MELATONIN 3 MG TABLET PO SCH (20:48)
[2022-08-19] MEDS: traZODone HCL 100 MG TAB PO SCH ×2 (20:49→22:19)
[2022-08-20 06:50] VITALS: BP 124/77; PULSE 106; RESP 18
[2022-08-20] MEDS: ARIPiprazole 10 MG TAB PO SCH (08:24)
[2022-08-20] MEDS: NICOTINE 21MG/24HR PATCH TRANSDERM SCH (08:24)
--- NOTE | 2022-08-20 09:57 | P.DS ---
Providers Date of admission: 08/14/22 05:52 Expected date of discharge: 08/20/22 Attending physician: Reji Forde MD Consults: 08/14/22 01:35 Consult Physician Routine Consulting Provider: Iglesia Miranda Consult Reason/Comments: H and P Do you want consulting provider notified?: Yes, Notify in am Primary care physician: Stated None - Discharge Diagnosis(es) (1) Bipolar disorder, manic Current Visit: Yes Status: Acute Priority: High (2) Cannabis use disorder Current Visit: Yes Status: Acute Priority: Medium Hospital Course: Admission HPI: Admission note was completed by medical technical writer "Patient is a 21 year old male with history of noncompliance with medications/treatment who was brought to ER by police in the context of petition by father for homicidal ideations and threats towards family members. Patient has a history of several psychiatric inpatient hospitalizations, most recently 2 weeks ago was discharged from the mental health unit. Patient has a history of bipolar disorder and noncompliance of treatment. He was discharged previously on trazodone and Abilify. Patient was brought in yesterday on petition by father for making homicidal threats towards his family members and acting aggressive and bizarre at home. Patient was seen wandering the hallways/pacing and had a shaved head. He was agreeable to be tried in the office. He has pressured speech, rambles and was argumentative with medical technical writer. He claims that "it's my right not to take medications" and states that his been noncompliant with his Abilify since discharge. He claims that "everything's lives" that was written on the petition and states that his family wants him to be in the hospital so they can "get all my belongings and money from me". He was endorsing significant paranoia. He was demonstrating poor insight and judgment. Not cooperative. States that his sleep is poor. patient is demonstrating poor impulse control and mood lability. very argumentative. Used to refuse medications. He states that he is not having any suicidal or homicidal ideations intent or plan. He is denying any auditory or visual hallucinations. Patient claims that he uses cannabis regularly." Hospital course: Upon admission to the unit patient was admitted involuntarily and petition and 2 certificates were sent to the courts. Patient ended up signing a deferral with her [place] attorney. Patient got along well with other patients on the unit and followed unit protocol. Patient was compliant initially resistant and non compliant with the medications however with time he improved and began taking the medications and denied any side effects throughout hospital course. Patient was started on Abilify 10 mg daily for mood stabilization, trazodone 100 mg qhs for insomnia, melatonin 6 mg qhs for sleep. Due to a history of non compliance with meds, patient was transitioned onto Abilify Maintenna 400mg IM and first dose was given on 08/20, next dose due on 09/16. Patient spoke of his stressors and engaged in therapy both group and individual. Patient was also seen by medical team for history and physical exam. Throughout the course of the hospitalization patient gradually improved with regards to mood, anxiety, sleep and became more future oriented with improved insight and judgment. On the day of discharge patient denied any suicidal or homicidal ideations intent or plan denied any auditory or visual hallucinations. Patient endorsed wanting to live for his health and his future. The patient denied any access to guns or weapons. Patient denied any paranoia and did not endorse any delusions. Patient does have a significant history of substance abuse and was counseled on abstaining from all substances including alcohol and marijuana. Patient was also counseled on the medications and need for regular compliance and was encouraged to follow-up with their outpatient appointment for mental health and also for primary care. Prior to discharge a family meeting will be arranged by social services analyst to answer any questions and ensure safety upon discharge. Mental status exam: General Appearance: Patient appears to be thin, shaved head, stated age is alert, pleasant, and cooperative. Patient is in no acute distress and has improved hygiene and grooming Behavior: Patient is calmly seated without any agitated behavior. Speech: Patient's speech is fluent and nonpressured. Mood/Affect: Patient reports their mood is "ok", affect is congruent Suicidality/Homicidality: Patient denies having any suicidal or homicidal ideation intent or plan. Perceptions: Patient denies any auditory or visual hallucinations. Though content/process: There is no evidence of any delusional thought content and thought process is linear and goal-directed. more future oriented Memory and concentration: AOX3, grossly intact for the purposes of this session. Can spell "WORLD" backwards correctly. Judgment and insight: improved with guarded prognosis Impression: Bipolar disorder, manic episode Cannabis use disorder Plan: -Continue with discharge today as patient has improved and stabilized psychiatrically and is not currently an imminent threat to himself and/or others. Patient will remain at chronically elevated risk for harm to self and/or others due to his impulsivity and substance abuse. -Continue medications: Abilify by mouth 10 mg daily for mood stabilization for 30 more days then discontinue. Patient received Abilify Maintenna 400 mg IM on 08/19 and will be due for monthly dose next on 09/16. Trazodone 100 mg daily at bedtime for sleep, melatonin 6 mg daily at bedtime for sleep. -Patient was counseled on the need for medication compliance and appropriate follow-up at mental health and also primary care for medical issues. Patient verbalized understanding and agreed. -Social work to arrange for and conduct family meeting to ensure safety upon discharge and answer any questions/concerns. Social work also to arrange for patients follow up appointments with [facility] for psychiatric care along with follow up with primary care provider. -Patient counseled on abstaining from recreational drugs and marijuana and alcohol. Was informed/educated on the adverse effects on their physical and mental health. Patient verbally agreed and understood. -Patient was instructed to return to the hospital or seek immediate medical care if their psychiatric or medical symptoms do worsen or reoccur. Allergies Allergy/AdvReac Type Severity Reaction Status Date / Time No Known Allergies Allergy Verified 08/13/22 21:10 Laboratory Results Coronavirus (PCR) Not Detected (Not Detectd) 08/14/22 02:00 Vital Signs Temp 98.8 F 08/19/22 06:33 Pulse 106 H 08/20/22 06:00 Resp 18 08/20/22 06:00 BP 124/77 08/20/22 06:00 Pulse Ox 95 08/20/22 06:00 FiO2 Patient Condition at Discharge: Stable Plan - Discharge Summary Discharge Rx Participant: Yes New Discharge Prescriptions: New Melatonin 6 mg PO HS 30 Days tab ARIPiprazole IM [Abilify Maintena] 400 mg IM QMONTHLY #1 each ARIPiprazole [Abilify] 10 mg PO DAILY 13 Days tab traZODone HCL [Desyrel] 100 mg PO HS 30 Days tab Discharge Medication List ARIPiprazole IM [Abilify Maintena] 400 mg IM QMONTHLY #1 each 08/20/22 [Rx] ARIPiprazole [Abilify] 10 mg PO DAILY 13 Days tab 08/20/22 [Rx] Melatonin 6 mg PO HS 30 Days tab 08/20/22 [Rx] traZODone HCL [Desyrel] 100 mg PO HS 30 Days tab 08/20/22 [Rx] Follow up Appointment(s)/Referral(s): [facility] - 08[facility]21/22 9:30 am [facility]with [facility] Patient Instructions/Handouts: Bipolar Disorder (DC), Psychotic Disorder (DC) Activity/Diet/Wound Care/Special Instructions: Avoid the use of street drugs and alcohol. Take all prescriptions as prescribed. When you are in need of refills on your medications, please contact your medical provider and/or outpatient psychiatrist to have this done. Please go to scheduled outpatient appointment for aftercare treatment. If symptoms return or become worse, call the crisis line at and/or go to the nearest emergency room for evaluation Discharge Disposition: HOME SELF-CARE
== END 2022-08-20 13:22 | disposition home or self-care (01) | DRG 885 ==
LOC: EC 20:04 → 3MHU 08-14 05:52
PROVIDERS: ADMIT Psychiatry & Neurology Psychiatry; ATTEND Psychiatry & Neurology Psychiatry
DX: F31.2 Bipolar disorder, current episode manic severe with psychotic features (principal); F12.10 Cannabis abuse, uncomplicated; F17.210 Nicotine dependence, cigarettes, uncomplicated; Z81.1 Family history of alcohol abuse and dependence; Z20.822 Contact with and (suspected) exposure to COVID-19; T43.596A Underdosing of other antipsychotics and neuroleptics, initial encounter; Z91.128 Patient's intentional underdosing of medication regimen for other reason; Z91.199 Patient's noncompliance with other medical treatment and regimen due to unspecified reason; F41.9 Anxiety disorder, unspecified; R45.850 Homicidal ideations; G47.00 Insomnia, unspecified; I10 Essential (primary) hypertension; Z79.899 Other long term (current) drug therapy; Z81.8 Family history of other mental and behavioral disorders; Z71.3 Dietary counseling and surveillance; Z28.21 Immunization not carried out because of patient refusal
CPT/HCPCS: 87635; 96372; 99285

== ENCOUNTER 2024-07-07 16:10 | Inpatient (IN) | payer BC, MEDICAID ==
--- NOTE | 2024-07-07 16:31 | ED ---
General Adult HPI - General Source: patient, RN notes reviewed Mode of arrival: ambulatory Limitations: no limitations <Marlene Aquino - Last Filed: 07/07/24 16:29> - General Source: patient, RN notes reviewed, old records reviewed Mode of arrival: ambulatory Limitations: no limitations <Tommy Orellana - Last Filed: 07/07/24 22:06> - General Chief complaint: Psychiatric Symptoms Stated complaint: petition Time Seen by Provider: 07/07/24 16:25 - History of Present Illness Initial comments: Quick note: 23-year-old male presents to the emergency department petitioned by PD for mental health evaluation. Patient was recently released from retirement. He was noted to have very minimal sleep for the past 3 days. Petition also reports that he has been aggressive towards his mother and noncompliant with his medication treatment. (Marlene Aquino) This is a 23-year-old to the ER for evaluation of mental health evaluation (Tommy Orellana) - Related Data Previous Rx's Medication Instructions Recorded ARIPiprazole IM [Abilify Maintena] 400 mg IM QMONTHLY #1 each 08/20/22 ARIPiprazole [Abilify] 10 mg PO DAILY 13 Days tab 08/20/22 Melatonin 6 mg PO HS 30 Days tab 08/20/22 traZODone HCL [Desyrel] 100 mg PO HS 30 Days tab 08/20/22 Allergies Allergy/AdvReac Type Severity Reaction Status Date / Time No Known Allergies Allergy Verified 07/07/24 16:25 Review of Systems ROS Other: All systems not noted in ROS Statement are negative. <Marlene Aquino - Last Filed: 07/07/24 16:29> ROS Other: All systems not noted in ROS Statement are negative. <Tommy Orellana - Last Filed: 07/07/24 22:06> ROS Statement: Those systems with pertinent positive or pertinent negative responses have been documented in the HPI. Past Medical History Past Medical History: No Reported History History of Any Multi-Drug Resistant Organisms: None Reported Past Surgical History: No Surgical Hx Reported Additional Past Surgical History / Comment(s): wisdom teeth Past Psychological History: Bipolar, Depression Smoking Status: Current some day smoker Past Alcohol Use History: Occasional Past Drug Use History: Marijuana - Past Family History family Additional Family Medical History / Comment(s): mental health issues <Marlene Aquino - Last Filed: 07/07/24 16:29> General Exam Limitations: no limitations <Marlene Aquino - Last Filed: 07/07/24 16:29> General appearance: alert, in no apparent distress Head exam: Present: atraumatic, normocephalic, normal inspection Eye exam: Present: normal appearance, PERRL, EOMI. Absent: scleral icterus, conjunctival injection, periorbital swelling ENT exam: Present: normal exam, mucous membranes moist Neck exam: Present: normal inspection. Absent: tenderness, meningismus, lymphadenopathy Respiratory exam: Present: normal lung sounds bilaterally. Absent: respiratory distress, wheezes, rales, rhonchi, stridor Cardiovascular Exam: Present: regular rate, normal rhythm, normal heart sounds. Absent: systolic murmur, diastolic murmur, rubs, gallop, clicks GI/Abdominal exam: Present: soft, normal bowel sounds. Absent: distended, tenderness, guarding, rebound, rigid Extremities exam: Present: normal inspection, full ROM, normal capillary refill. Absent: tenderness, pedal edema, joint swelling, calf tenderness Back exam: Present: normal inspection Neurological exam: Present: alert, oriented X3, CN II-XII intact Psychiatric exam: Present: normal affect, normal mood Skin exam: Present: warm, dry, intact, normal color. Absent: rash <Tommy Orellana - Last Filed: 07/07/24 22:06> - General Exam Comments Initial Comments: Visual Physical Exam Vital signs reviewed General: Well-appearing, nontoxic, no acute distress, anxious. Head: Normocephalic, atraumatic Eyes: PERRLA, EOMI ENT: Airway patent Chest: Nonlabored breathing Skin: No visual rash, normal skin tone Neuro: Alert and oriented 3 Musculoskeletal: No gross abnormalities (Marlene Aquino) Course <Tommy Orellana - Last Filed: 07/07/24 22:06> Vital Signs 07/07/24 16:25 Temperature 97.4 F L Pulse Rate 106 H Respiratory 18 Rate Blood Pressure 149/89 O2 Sat by Pulse 97 Oximetry - Reevaluation(s) Reevaluation #1: 07/07/24 20:52 Medically cleared for psychiatric evaluation (Tommy Orellana) Reevaluation #2: 07/07/24 20:52 Records reviewed (Tommy Orellana) Reevaluation #3: Differential Mental Health Depression, anxiety, bipolar, psychosis, schizophrenia, borderline personality, situational depression, adjustment disorder, behavioral disorder, brain tumor, malingering, substance abuse, encephalopathy, medication reaction, dementia, hypothyroidism, degenerative neurologic disorder, lupus.... This is not meant to be all-inclusive list (Tommy Orellana) Medical Decision Making <Marlene Aquino - Last Filed: 07/07/24 16:29> <Tommy Orellana - Last Filed: 07/07/24 22:06> - Medical Decision Making Quick note preformed and electronically signed by Marlene Aquino PA-C (Marlene Aquino) 23 male who is seen evaluate psychiatry here in the ER and will be admitted (Tommy Orellana) - Lab Data Lab Results 07/07/24 Range/Units 17:08 SARS-CoV-2 (PCR) Not Detected (Not Detectd) Disposition <Marlene Aquino - Last Filed: 07/07/24 16:29> Is patient prescribed a controlled substance at d/c from ED?: No <Tommy Orellana - Last Filed: 07/07/24 22:06> Clinical Impression: Psychosis, Cannabis use disorder, Acute psychosis, Encounter for psychiatric assessment, Bipolar disorder with severe cedric, Cannabis use disorder, mild, abuse, Bipolar disorder, current episode manic severe with psychotic features Disposition: TRANSFER TO PSYCH HOSP/UNIT Condition: Fair Referrals: None,Stated [Primary Care Provider] - 1-2 days
[2024-07-07] MEDS ORDERED: MAGNESIUM HYDROXIDE 2,400 MG/30 ML CUP PO PRN (22:36)
[2024-07-07] MEDS ORDERED: ACETAMINOPHEN TAB 325 MG TAB PO PRN (22:36)
[2024-07-07] MEDS ORDERED: MAG HYDROX/AL HYDROX/SIMETH 355 ML BOTTLE PO PRN (22:36)
[2024-07-07] MEDS ORDERED: IBUPROFEN 600 MG TAB PO PRN (22:36)
[2024-07-07] MEDS ORDERED: LORazepam 2 MG/ML INJ IM PRN (22:37)
[2024-07-07] MEDS ORDERED: HALOPERIDOL LACTATE 5 MG/ML 1 ML VIAL IM PRN (22:37)
[2024-07-07 23:49] VITALS: RESP 16
[2024-07-08] MEDS: NICOTINE 14MG/24HR PATCH TRANSDERM SCH (09:23)
[2024-07-08 09:25] LABS: Basophils # (A) 0.1 k/uL (0-0.2); Basophils % (A) 1 %; Eosinophils # (A) 0.3 k/uL (0-0.7); Eosinophils % (A) 3 %; HCT 48.5 % (39.0-53.0); HGB 15.8 gm/dL (13.0-17.5); Lymphocytes # (A) 3.4 k/uL (1.0-4.8); Lymphocytes % (A) 27 %; MCH 28.5 pg (25.0-35.0); MCHC 32.5 g/dL (31.0-37.0); MCV 87.6 fL (80.0-100.0); Mean Platelet Volume 6.7; Monocytes % (A) 8 %; Neutrophils # (A) 7.4 k/uL (1.3-7.7); Neutrophils % (A) 60 %; Platelet Count 324 k/uL (150-450); RBC 5.54 m/uL (4.30-5.90); RDW 12.7 % (11.5-15.5); WBC 12.4 k/uL (3.8-10.6)
[2024-07-08 09:36] LABS: AST 149 U/L (17-59); African American GFR (CKD) >90 (>60 ml/min/1.73 sqM); Albumin 5.1 g/dL (3.5-5.0); Alkaline Phosphatase 87 U/L (38-126); Anion Gap 11 mmol/L; Blood Urea Nitrogen 7 mg/dL (9-20); Calcium 10.2 mg/dL (8.4-10.2); Carbon Dioxide 32 mmol/L (22-30); Chloride 96 mmol/L (98-107); Glucose 105 mg/dL (74-99); Non-African American GFR(CKD) >90 (>60 ml/min/1.73 sqM); Potassium 4.3 mmol/L (3.5-5.1); Sodium 139 mmol/L (137-145); Total Bilirubin 0.8 mg/dL (0.2-1.3); Total Protein 8.1 g/dL (6.3-8.2)
[2024-07-08 09:56] LABS: ALT 91 U/L (4-49)
[2024-07-08] MEDS: LORazepam 1 MG TAB PO PRN (12:48)
[2024-07-08] MEDS ORDERED: traZODone HCL 50 MG TAB PO PRN (13:11)
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
[2024-07-08] MEDS: LITHIUM CARBONATE 150 MG CAP PO SCH (14:56)
--- NOTE | 2024-07-09 11:54 | P.PN ---
Progress Note - Text Progress Note Date: 07/09/24 Interval History: Patient was seen wandering the hallways and was directable and agreeable to [place] with commercial lines underwriter in the office. He displays elevated energy and rapid speech however when asked about his speech or racing thoughts, patient appeared to be minimizing this stating this is his baseline. Patient slept 1 hour overnight, seen pacing the unit. Patient continues to remain fixated on his family, stating he will get a restraining order against his mom who is also his guardian when he gets discharged. He received as needed Ativan yesterday due to argument with peer however patient states he was standing up for another patient as this peer was being intrusive. He states he slept 3 or 4 hours yesterday after the Ativan and that this was the reason why he only slept 1 hour last night. Discussed with patient the concerns with sleep given his cedric however patient was resistant with starting a medication for sleep. He otherwise has been attending groups but is intrusive and hyperverbal at times. At this time patient denies any suicidal or homicidal ideations, intent or plan. Patient denies any auditory, visual hallucinations and denies delusions. He displays some paranoia related to his family. Patient denies any side effects from the medications and has been compliant with meds. Mental Status Exam: General Appearance: Patient appears to be stated age is alert, directable, and cooperative. Behavior: Patient is restless, often standing with difficulty sitting still. Speech: Patient's speech is fluent and rapid but interruptible. Mood/Affect: Mood is "great", affect is congruent and expansive. Suicidality/Homicidality: Patient denies having any suicidal or homicidal ideation intent or plan. Perceptions: Patient denies any visual hallucinations and denies any auditory hallucinations Though content/process: Patient remains fixated on his mother and family issues with thought process being tangential Memory and concentration: AOX3, grossly intact for the purposes of this session Judgment and insight: poor Assessment Bipolar 1 disorder, current episode manic Rule out PTSD Plan: -Patient continues to meet criteria for inpatient psychiatric admission for symptom stabilization and safety. Patient has signed adult voluntary form and medication consent and was placed in patient's chart. -Medications: Increase lithium to 150 mg twice daily and 300 mg at bedtime for cedric, add trazodone 50 mg at bedtime for sleep. Discussed with patient the need to be adherent with medications and if he refuses he may be converted involuntarily -When necessary Ativan and Haldol for agitation/aggression. -Labs: Reviewed -SW on board for discharge planning. Encouraged the patient to participate in milieu.
[2024-07-09] MEDS: LITHIUM CARBONATE 150 MG CAP PO SCH (15:35)
--- NOTE | 2024-07-09 18:33 | P.CONS ---
History of Present Illness - Reason for Consult Consult date: 07/09/24 - History of Present Illness 23 year old M with no significant PMH presents to [facility] for mental health concerns. He has been admitted to the mental health unit for further management of symptoms. [facility] consulted for medical management of this patient. Occasional smoker. No EtOH. Occasional use of marijuana. BP 149/106, HR 106, T 97.4, RR 18, 97% on RA. CBC WBC 12.4. CMP Cl 96, bicarb 32, BUN 7, glu 105, AST 149, ALT 91, alb 5.1. TSH 0.537. A1c 5.3 COVID negative. General: non toxic, no distress, appears at stated age Derm: warm, dry Head: atraumatic, normocephalic, symmetric Eyes: EOMI, no lid lag, anicteric sclera Mouth: no lip lesion, mucus membranes moist Cardiovascular: S1S2 reg, no murmur Lungs: CTA bilateral, no rhonchi, no rales , no accessory muscle use Ext: no gross muscle atrophy, no edema, no contractures Neuro: no focal neuro deficits Psych: Alert, oriented, appropriate affect Based on my assessment of this patient, this patient meets a high complexity level of care. Transaminitis: Could be related to [place] or Trazadone. Repeat CMP tomorrow. Check Ferritin, Hep panel, Lipid panel. Leukocytosis: No signs of active infection. Likely reactive. Monitor fever p rofile. HypoCl metabolic alkaosis: Poor appetite. Repeat CMP tomorrow. I have reviewed the following workforce management consultant notes: Psyc note. I have reviewed the results of the following tests: CBC, CMP, A1c, TSH, COVID. I have ordered the following tests: Ferritin, Hep panel, Lipid panel, CMP. I have discussed the care of this patient with the following independent historian: I have independently interpreted the following test below: I have discussed the management of this patient with the following physician: Past Medical History Past Medical History: No Reported History History of Any Multi-Drug Resistant Organisms: None Reported Past Surgical History: No Surgical Hx Reported Additional Past Surgical History / Comment(s): wisdom teeth Past Psychological History: Bipolar, Depression Smoking Status: Current every day smoker Past Alcohol Use History: Occasional Past Drug Use History: Marijuana - Past Family History family Additional Family Medical History / Comment(s): mental health issues Medications and Allergies Home Medications Medication Instructions Recorded Confirmed Type ARIPiprazole IM [Abilify Maintena] 400 mg IM QMONTHLY #1 each 08/20/22 Rx ARIPiprazole [Abilify] 10 mg PO DAILY 13 Days tab 08/20/22 Rx Melatonin 6 mg PO HS 30 Days tab 08/20/22 Rx traZODone HCL [Desyrel] 100 mg PO HS 30 Days tab 08/20/22 Rx Allergies Allergy/AdvReac Type Severity Reaction Status Date / Time No Known Allergies Allergy Verified 07/07/24 16:25 Results CBC & Chem 7: 07/08/24 09:01 07/08/24 09:01
[2024-07-09] MEDS: LITHIUM CARBONATE 300 MG CAP PO SCH (19:55)
[2024-07-09] MEDS: traZODone HCL 50 MG TAB PO SCH (19:56)
[2024-07-10 06:01] VITALS: TEMP 97.7
[2024-07-10 08:48] LABS: ALT 92 U/L (4-49); AST 93 U/L (17-59); African American GFR (CKD) >90 (>60 ml/min/1.73 sqM); Albumin 5.1 g/dL (3.5-5.0); Alkaline Phosphatase 93 U/L (38-126); Anion Gap 8 mmol/L; Blood Urea Nitrogen 8 mg/dL (9-20); Calcium 10.1 mg/dL (8.4-10.2); Carbon Dioxide 28 mmol/L (22-30); Chloride 100 mmol/L (98-107); Glucose 95 mg/dL (74-99); Non-African American GFR(CKD) >90 (>60 ml/min/1.73 sqM); Potassium 4.3 mmol/L (3.5-5.1); Sodium 136 mmol/L (137-145); Total Bilirubin 0.8 mg/dL (0.2-1.3)
[2024-07-10] MEDS: LITHIUM CARBONATE 150 MG CAP PO SCH (09:07)
[2024-07-10 13:11] LABS: Appearance,Urine Clear (Clear); Bilirubin,Urine Negative (Negative); Blood,Urine Negative (Negative); Color,Urine Colorless; Glucose,Urine (UA) Negative (Negative); Ketones,Urine Negative (Negative); Leukocyte Esterase,Urine Negative (Negative); Nitrite,Urine Negative (Negative); Protein,Urine Negative (Negative); Specific Gravity,Urine 1.001 (1.001-1.035); Urobilinogen,Urine <2.0 mg/dL (<2.0)
[2024-07-10 13:26] LABS: Hepatitis A Antibody IgM Nonreactive (Nonreactive); Hepatitis B Core IgM Nonreactive (Nonreactive); Hepatitis B Surface Antigen Nonreactive (Nonreactive); Hepatitis C IgG Antibody Nonreactive (Nonreactive)
[2024-07-10 13:30] LABS: Chol/HDL Ratio 2.64 Ratio; LDL Cholesterol,Calculated 77.6 mg/dL (0.0-131.0); VLDL Calculation 13.78 mg/dL (5.00-40.00)
--- NOTE | 2024-07-10 13:44 | P.PN ---
Progress Note - Text Progress Note Date: 07/10/24 Interval history: Patient was seen doing laps in the hallway and was directable and agreeable to speak with commercial loan underwriter. He his mood as "great." He explained that he took the Trazodone around 8:30pm and was out for several hours. He believes he slept much longer than 1 hour last night. He notes that at the time of admission he felt his mood symptoms increasing and knew he was experiencing a manic episode. He explained that in the past he has been "grandiose" and believed he was God; these were indicators that things were severe. He doesn't feel it's gotten to that point this time. He has been using cannabis much less prior to admission and not using other drugs, something that is a change from the past. He denies experiencing depression or persistent sadness. He feels [place] is the only thing that really helps him maintain mood stability, which was also the case for his grandfather who had bipolar I disorder. At this time patient denies any suicidal or homicidal ideations intent or plan. Denies any auditory or visual hallucinations. Patient denies any side effects from the medications and has been compliant with meds. Mental status exam: General Appearance: Patient appears to be stated age is alert, directable, and cooperative. Behavior: Mild psychomotor agitation, restlessness. Patient is calm and directable, easy to engage and converse with. Speech: Patient's speech is fluent and rapid. Mood/Affect: Mood is "great", affect is congruent and constricted. Suicidality/Homicidality: Patient denies having any suicidal or homicidal ideation intent or plan. Perceptions: Patient denies any auditory or visual hallucinations. Though content/process: There is no evidence of any delusional thought content and thought process is linear and goal-directed. Memory and concentration: AOX3, grossly intact for the purposes of this session Judgment and insight: improving mildly Assessment/Plan: Continue with current diagnosis: Bipolar I disorder, current episode manic, consider PTSD Patient continues to meet criteria for inpatient psychiatric admission for symptom stabilization and safety. Patient will be maintained on current psychotropic medication regimen: [place] 150 mg daily/150 mg afternoon/300 mg at bedtime, trazodone 50 mg at bedtime (would like this to be scheduled a bit later due to his normal sleep schedule) Monitor for medication compliance and for any psychotropic medication side effects. Medicine continues to follow due to elevated LFTs. Will continue to monitor ongoing response to treatment. Encouraged participation in milieu.
[2024-07-10 23:06] LABS: Urine Alcohol Negative (Negative); Urine Barbiturate Negative (Negative); Urine Cocaine Negative (Negative); Urine Methadone Negative (Negative); Urine Opiates Negative (Negative); Urine Phencyclidine Negative (Negative)
--- NOTE | 2024-07-11 12:21 | P.PN ---
Progress Note - Text Interval history: Patient was seen doing laps in the hallway again today and was directable and agreeable to speak with scenario writer while he walked. He described his mood as "level." He reports having slept from 11pm to 3am which he feels is consistent with his usual routine. Of note, he has been awake and moving most of the morning, walking the halls. He shared that his level of activity and energy are often confused for symptoms of cedric. While he does agree he's experiencing cedric, he relates more to the mood aspects rather than how this impacts his physical activity. Discussed the recommendation to increase his afternoon [place] dose which he was agreeable with. At this time patient denies any suicidal or homicidal ideations intent or plan. Denies any auditory or visual hallucinations. Patient denies any side effects from the medications and has been compliant with meds. Mental status exam: General Appearance: Patient appears to be stated age is alert, directable, and cooperative. Behavior: Moderate psychomotor agitation, restlessness. Actively walking the halls continuously. Patient is calm and directable, easy to engage and converse with. Speech: Patient's speech is fluent and rapid. Mood/Affect: Mood is level", affect is congruent and constricted. Suicidality/Homicidality: Patient denies having any suicidal or homicidal ideation intent or plan. Perceptions: Patient denies any auditory or visual hallucinations. Though content/process: There is no evidence of any delusional thought content and thought process is linear and goal-directed. Memory and concentration: AOX3, grossly intact for the purposes of this session Judgment and insight: improving mildly Assessment/Plan: Continue with current diagnosis: Bipolar I disorder, current episode manic, consider PTSD Patient continues to meet criteria for inpatient psychiatric admission for symptom stabilization and safety. Psychotropic medication regimen: Continue [place] 150 mg daily, Increase [place] to 300 mg afternoon (from 150 mg), Continue [place] 300 mg at bedtime; trazodone 50 mg at bedtime Monitor for medication compliance and for any psychotropic medication side effects. Medicine continues to follow due to elevated LFTs. Will continue to monitor ongoing response to treatment. Encouraged participation in milieu.
[2024-07-11] MEDS: haloperidoL 5 MG TAB PO PRN (13:05)
[2024-07-11] MEDS: LITHIUM CARBONATE 300 MG CAP PO SCH (16:01)
--- NOTE | 2024-07-12 11:57 | P.PN ---
Progress Note - Text Progress Note Date: 07/12/24 Interval History: Patient was seen in group and was directable and agreeable to speak with sheet writer in the office. He reports feeling better today as he feels like the lithium has been keeping him stable. He discussed the events that happened yesterday where he became agitated at one of his peers however he states that this was due to them provoking him throughout the day. He states that the fact that he did not blow up on this individual is a sign that he has improved as he has been able to manage his outbursts more without receiving any as needed medications. He reports sleeping from 11 PM-3 AM and was up for a bit before going back to sleep. Staff documented he slept 5 hours overnight. He states he spoke to several members of his family including his mother however he is insistent on not returning home with her. At this time patient denies any suicidal or homicidal ideations, intent or plan. Patient denies any auditory, visual hallucinations and denies any paranoia or delusions. Patient denies any side effects from the medications and has been compliant with meds. Mental Status Exam: General Appearance: Patient appears to be stated age is alert, directable, and cooperative. Behavior: Patient is restless however no agitated behavior. Speech: Patient's speech is fluent and nonpressured. Mood/Affect: Mood is improving mildly, affect is congruent and constricted. Suicidality/Homicidality: Patient denies having any suicidal or homicidal ideation intent or plan. Perceptions: Patient denies any visual hallucinations and denies any auditory hallucinations Though content/process: There is no evidence of any delusional thought content and thought process is linear and goal-directed. Memory and concentration: AOX3, grossly intact for the purposes of this session Judgment and insight: Improving mildly Assessment Bipolar 1 disorder, current episode manic Rule out PTSD Plan: -Patient continues to meet criteria for inpatient psychiatric admission for symptom stabilization and safety. Patient has signed adult voluntary form and medication consent and was placed in patient's chart. -Medications: Continue lithium 150 mg daily and 300 mg in the afternoon and 300 mg at bedtime, will consolidate the morning and afternoon dose tomorrow. Continue trazodone 50 mg at bedtime -When necessary Ativan and Haldol for agitation/aggression. -Labs: Reviewed, LFTs improved and lithium level ordered for tomorrow -SW on board for discharge planning. Encouraged the patient to participate in milieu. Anticipate discharge home with friend tomorrow
[2024-07-13 06:52] VITALS: BP 119/81; PULSE 92
[2024-07-13] MEDS: LITHIUM CARBONATE 150 MG CAP PO SCH (09:41)
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
== END 2024-07-13 12:55 | disposition home or self-care (01) | DRG 885 ==
LOC: EC 16:10 → 3MHU 22:33
PROVIDERS: ADMIT Psychiatry & Neurology Psychiatry; ATTEND Psychiatry & Neurology Psychiatry
DX: F31.10 Bipolar disorder, current episode manic without psychotic features, unspecified (principal); F12.10 Cannabis abuse, uncomplicated; F17.200 Nicotine dependence, unspecified, uncomplicated; R79.89 Other specified abnormal findings of blood chemistry; Z59.71 Insufficient health insurance coverage; Z79.899 Other long term (current) drug therapy; Z91.141 Patient's other noncompliance with medication regimen due to financial hardship
CPT/HCPCS: 80053; 80061; 80074; 80178; 80306; 81003; 82075; 82728; 83036; 84443; 85025; 87635; 99285

== ENCOUNTER 2024-07-14 12:00 | Emergency (ER) | payer BC, MEDICAID ==
[2024-07-14 12:13] VITALS: RESP 18
--- NOTE | 2024-07-14 12:45 | ED ---
General Adult HPI - General Chief complaint: Seizure Stated complaint: Seizure Time Seen by Provider: 07/14/24 12:04 Source: patient, EMS Mode of arrival: EMS Limitations: no limitations - History of Present Illness Initial comments: Dictation was produced using [employer] dictation software. please excuse any grammatical, word or spelling errors. Chief Complaint: 23-year-old male presents after seizure History of Present Illness: Patient 23-year-old male with no history of seizure presents to the emergency department after seizure. Patient has a history of bipolar disease takes lithium. Patient was at the plasma center getting ready to donate. He was taking vitals when all of a sudden he had tonic-clonic activity. Lasted for approximately 1 minute patient was allegedly postictal for several minutes after. Patient has no history of seizure. Patient does not recall the events. He states that he is donated blood given plasma on multiple occasions. The ROS documented in this emergency department record has been reviewed and confirmed by me. Those systems with pertinent positive or negative responses have been documented in the HPI. All other systems are other negative and/or noncontributory. - Related Data Home Medications Medication Instructions Recorded Confirmed [place] Carbonate 300 mg PO HS 07/14/24 07/14/24 Previous Rx's Medication Instructions Recorded [place] Carbonate 450 mg PO DAILY 30 Days #90 cap 07/13/24 traZODone HCL [Desyrel] 50 mg PO HS 30 Days #30 tab 07/13/24 Allergies Allergy/AdvReac Type Severity Reaction Status Date / Time No Known Allergies Allergy Verified 07/14/24 12:32 Review of Systems ROS Statement: Those systems with pertinent positive or pertinent negative responses have been documented in the HPI. ROS Other: All systems not noted in ROS Statement are negative. Past Medical History Past Medical History: No Reported History History of Any Multi-Drug Resistant Organisms: None Reported Past Surgical History: No Surgical Hx Reported Additional Past Surgical History / Comment(s): wisdom teeth Past Psychological History: Bipolar, Depression Smoking Status: Current every day smoker Past Alcohol Use History: Occasional Past Drug Use History: Marijuana - Past Family History family Additional Family Medical History / Comment(s): mental health issues General Exam - General Exam Comments Initial Comments: PHYSICAL EXAM: General Impression: Alert and oriented x3, not in acute distress HEENT: Normocephalic atraumatic, extra-ocular movements intact, pupils equal and reactive to light bilaterally, mucous membranes moist. Cardiovascular: Heart regular rate and rhythm Chest: Able to complete full sentences, no retractions, no tachypnea Abdomen: abdomen soft, non-tender, non-distended, no organomegaly Musculoskeletal: Pulses present and equal in all extremities, no peripheral edema Motor: no focal deficits noted Neurological: CN II-XII grossly intact, no focal motor or sensory deficits noted Skin: Intact with no visualized rashes Psych: Normal affect and mood Limitations: no limitations Course Vital Signs 07/14/24 12:04 Temperature 97.4 F L Pulse Rate 112 H Respiratory 18 Rate Blood Pressure 130/59 O2 Sat by Pulse 98 Oximetry EKG Findings - EKG Comments: EKG Findings:: My EKG interpretation: Ventricular rate 107, sinus tachycardia,. 139, QRS 93, QTc 411. No GA prolongation, no QTC prolongation, no ST or T-wave changes noted. Overall, this EKG is unremarkable Medical Decision Making - Medical Decision Making Was pt. sent in by a medical professional or institution (, PA, CODING AUDITOR, urgent care, hospital, or jail...) When possible be specific @ -[No] Did you speak to anyone other than the patient for history (EMS, parent, family, police, friend...)? What history was obtained from this source @ -[No] Did you review nursing and triage notes (agree or disagree)? Why? @ -[I reviewed and agree with nursing and triage notes] Were old charts reviewed (outside hosp., previous admission, EMS record, old EKG, old radiological studies, urgent care reports/EKG's, jail records)? Report findings @ -[No old charts were reviewed] Differential Diagnosis (chest pain, altered mental status, abdominal pain women, abdominal pain men, vaginal bleeding, musculoskeletal, weakness, fever, dyspnea, syncope, headache, dizziness, GI bleed, back pain, seizure, CVA, palpatations, mental health)? @ -Differential Seizure: Recurrent seizure disorder, febrile seizure, alcohol withdrawal, stimulants, meningitis, encephalitis, intercranial hemorrhage, intracranial tumor, stroke, eclampsia, thyrotoxicosis, hypocalcemia, hyponatremia, hypernatremia, hypomagnesemia, psychogenic, this is not meant to be an all-inclusive list. EKG interpreted by me (3pts min.). @ -See above X-rays interpreted by me (1pt min.). @ -[None done] CT interpreted by me (1pt min.). @ -CT brain is nonacute U/S interpreted by me (1pt. min.). @ -[None done] What testing was considered but not performed or refused? (CT, X-rays, U/S, lab s)? Why? @ -[None] What meds were considered but not given or refused? Why? @ -[None] Was smoking cessation discussed for >3mins.? @ -[No] Were there social determinants of health that impacted care today? How? (Homelessness, low income, unemployed, alcoholism, drug addiction, transportation, low edu. Level, literacy, decrease access to med. care, correction, rehab)? @ -[No] Was there de-escalation of care discussed even if they declined (Discuss DNR or withdrawal of care, Hospice)? DNR status @ -[No] What co-morbidities impacted this encounter? (DM, HTN, Smoking, COPD, CAD, Cancer, CVA, ARF, Chemo, Hep., AIDS, mental health diagnosis, sleep apnea, morbid obesity)? @ -Bipolar disease Was patient admitted / discharged? Hospital course, mention meds given and route, prescriptions, significant lab abnormalities, going to OR and other pertinent info. @ -23-year-old male presents to the emergency department after syncope versus seizure. Vital signs stable. There was reported tonic-clonic activity along with postictal state. He did not stool or urinate himself. No lateral tongue avulsion. Laboratory evaluation obtained. Labs shows leukocytosis 16. Lactic acidosis 2.3. Rest of labs within acceptable limits. CT brain is negative recommended patient be admitted for new onset seizure. States that he wants to be discharged. He is strongly advised to follow-up with his primary care doctor. Given precautions discussed. Patient told to not drive or operate heavy machinery till cleared by outpatient physician Did you discuss the management of the patient with other professionals (professionals i.e. , PA, CODING AUDITOR, lab, RT, psych nurse, licensed social worker, network consultant, teacher, credit or loans officer, dependency case manager)? Give summary @ -[No] Was critical care preformed (if so, how long)? @ -[No] Undiagnosed new problem with uncertain prognosis? @ -[No] Drug Therapy requiring intensive monitoring for toxicity (Heparin, Nitro, Insulin, Cardizem)? @ -[No] Were any procedures done? @ -[No] Diagnosis/symptom? Acute, or Chronic, or Acute on Chronic? Uncomplicated (without systemic symptoms) or Complicated (systemic symptoms)? @ -Seizure versus syncope Side effects of treatment? @ -[No] Exacerbation, Progression, or Severe Exacerbation? @ -[No] Poses a threat to life or bodily function? How? (Chest pain, [place], [place], pneumonia, PE, COPD, DKA, ARF, appy, cholecystitis, CVA, Diverticulitis, Homicidal, Suicidal, threat to staff... and all critical care pts) @ -yes - Lab Data Result diagrams: 07/14/24 13:01 07/14/24 13:01 Lab Results 07/14/24 07/14/24 07/14/24 Range/Units 13:01 13:01 13:01 WBC 16.0 H (3.8-10.6) k/uL RBC 5.54 (4.30-5.90) m/uL Hgb 16.0 (13.0-17.5) gm/dL Hct 48.8 (39.0-53.0) % MCV 88.2 (80.0-100.0) fL MCH 28.8 (25.0-35.0) pg MCHC 32.7 (31.0-37.0) g/dL RDW 12.5 (11.5-15.5) % Plt Count 353 (150-450) k/uL MPV 6.8 Neutrophils % 73 % Lymphocytes % 17 % Monocytes % 7 % Eosinophils % 2 % Basophils % 1 % Neutrophils # 11.6 H (1.3-7.7) k/uL Lymphocytes # 2.7 (1.0-4.8) k/uL Monocytes # 1.0 (0-1.0) k/uL Eosinophils # 0.3 (0-0.7) k/uL Basophils # 0.1 (0-0.2) k/uL Sodium 138 (137-145) mmol/L Potassium 4.1 (3.5-5.1) mmol/L Chloride 104 (98-107) mmol/L Carbon Dioxide 26 (22-30) mmol/L Anion Gap 8 mmol/L BUN 8 L (9-20) mg/dL Creatinine 0.82 (0.66-1.25) mg/dL Est GFR (CKD-EPI)AfAm >90 (>60 ml/min/1.73 sqM) Est GFR (CKD-EPI)NonAf >90 (>60 ml/min/1.73 sqM) Glucose 95 (74-99) mg/dL Plasma Lactic Acid Mane 2.3 H* (0.7-2.0) mmol/L Calcium 10.1 (8.4-10.2) mg/dL Magnesium 2.6 H (1.6-2.3) mg/dL Total Bilirubin 0.5 (0.2-1.3) mg/dL AST 58 (17-59) U/L ALT 65 H (4-49) U/L Alkaline Phosphatase 93 (38-126) U/L Total Protein 8.7 H (6.3-8.2) g/dL Albumin 5.4 H (3.5-5.0) g/dL [place] 0.2 mmol/L Disposition Clinical Impression: New onset seizure Disposition: HOME SELF-CARE Instructions (If sedation given, give patient instructions): Seizure/Epilepsy Discharge Instructions & Follow-Up, New-Onset Seizure in Adults (ED) Additional Instructions: No driving or operating heavy machinery until cleared by medical apparatus model maker Is patient prescribed a controlled substance at d/c from ED?: No Referrals: [facility] [NON-STAFF] - 1-2 days [facility] [NON-STAFF] - 1-2 days None,Stated [Primary Care Provider] - 1-2 days Forms: Area PCPs Time of Disposition: 14:12
[2024-07-14 13:20] LABS: Basophils # (A) 0.1 k/uL (0-0.2); Basophils % (A) 1 %; Eosinophils # (A) 0.3 k/uL (0-0.7); Eosinophils % (A) 2 %; HCT 48.8 % (39.0-53.0); Lymphocytes # (A) 2.7 k/uL (1.0-4.8); Lymphocytes % (A) 17 %; MCH 28.8 pg (25.0-35.0); MCHC 32.7 g/dL (31.0-37.0); MCV 88.2 fL (80.0-100.0); Mean Platelet Volume 6.8; Monocytes % (A) 7 %; Neutrophils # (A) 11.6 k/uL (1.3-7.7); Neutrophils % (A) 73 %; Platelet Count 353 k/uL (150-450); RBC 5.54 m/uL (4.30-5.90); RDW 12.5 % (11.5-15.5)
--- NOTE | 2024-07-14 13:20 | CT ---
EXAMINATION TYPE: CT brain wo con CT DLP: 1157.4 mGycm, Automated exposure control for dose reduction was used. DATE OF EXAM: 07/14/2024 1:16 PM COMPARISON: None. CLINICAL INDICATION:Male, 23 years old with history of new onset seizure, Seizure. TECHNIQUE: Brain: Multiple axial CT images of the brain were obtained without IV contrast. . Coronal and sagitta l reformats reviewed. FINDINGS: Brain: Extra-axial spaces: No abnormal extra-axial fluid collections. Ventricular system: Within normal limits Cerebral parenchyma: No acute intraparenchymal hemorrhage or mass effect. The padgett-white junction is well differentiated. Cerebellum: Unremarkable. Mass effect: No evidence of midline shift. Intracranial vasculature: unremarkable Soft tissues: Normal. Calvarium/osseous structures: No depressed skull fracture. Paranasal sinuses and mastoid air cells: Clear Visualized orbits: Orbital contents are intact. IMPRESSION: No acute intracranial process. [facility], , 07/14/2024 1:18 PM
[2024-07-14 13:38] LABS: ALT 65 U/L (4-49); AST 58 U/L (17-59); African American GFR (CKD) >90 (>60 ml/min/1.73 sqM); Albumin 5.4 g/dL (3.5-5.0); Alkaline Phosphatase 93 U/L (38-126); Anion Gap 8 mmol/L; Blood Urea Nitrogen 8 mg/dL (9-20); Calcium 10.1 mg/dL (8.4-10.2); Carbon Dioxide 26 mmol/L (22-30); Chloride 104 mmol/L (98-107); Glucose 95 mg/dL (74-99); Lithium 0.2 mmol/L; Magnesium 2.6 mg/dL (1.6-2.3); Non-African American GFR(CKD) >90 (>60 ml/min/1.73 sqM); Potassium 4.1 mmol/L (3.5-5.1); Sodium 138 mmol/L (137-145); Total Bilirubin 0.5 mg/dL (0.2-1.3); Total Protein 8.7 g/dL (6.3-8.2)
[2024-07-14 14:19] VITALS: BP 131/95; PULSE 101; TEMP 98
== END 2024-07-14 14:19 | disposition home or self-care (01) ==
LOC: EC 12:00
DX: R56.9 Unspecified convulsions (principal); R00.0 Tachycardia, unspecified; F17.200 Nicotine dependence, unspecified, uncomplicated
CPT/HCPCS: 36415; 70450; 80053; 80178; 83605; 83735; 85025; 93005; 99285